=== PATIENT | female | born 1950 | race Caucasian/White ===

== ENCOUNTER 2017-09-21 00:30 | Emergency (ER) | payer MEDICARE ==
[2017-09-21 01:31] LABS: Absolute Lymphocytes (CBC) 2.8 K/uL (0.7-4.9); Absolute Monocytes 0.6 K/uL (0.1-1.3); Absolute Neutrophil 3.1 K/uL (1.8-8.0); Basophils % 0.1 % (0-1.3); Eosinophils % 1.7 % (0-4.4); Hematocrit 39.5 % (36.0-45.0); Lymphocytes % 41.9 % (15.3-44.8); MCH 29.5 pg (27.0-35.0); MPV 7.6 fL (7.6-11.3); Monocytes % 9.2 % (3.3-12.3); RBC Red Blood Cell Count 4.59 M/uL (3.86-4.86)
[2017-09-21 01:37] LABS: Protime INR 0.95
[2017-09-21 01:49] LABS: Potassium 3.5 mEq/L (3.6-5.0)
[2017-09-21 01:55] LABS: Albumin 4.2 g/dL (3.2-5.5); Bilirubin Direct 0.1 mg/dL (0-0.2); Bilirubin Total 0.6 mg/dL (0.3-1.2); Magnesium 2.1 mg/dL (1.8-2.5); Platelet Estimate ADEQ; Protein, Total 8.1 g/dL (6.0-8.3); Urine White Blood Cell Casts OK
[2017-09-21 01:56] LABS: Blood Morphology Comment NOT SEEN (NOT SEEN); CKMB Creatine Kinase MB 1.4 ng/ml (0.3-4.0)
--- NOTE | 2017-09-21 03:46 | ER ---
Nurse's Notes [facility] Unit Name: Yohana To Age: 67 yrs Sex: Female : 1950 Arrival Date: 09/21/2017 Time: 00:33 Bed 8 Private MD: Peter Muñiz E Diagnosis: Chest pain, unspecified Presentation: 09/21 00:40 Presenting complaint: Patient states: "I have chest pain for the past two days and my ao blood pressure is high. When I sit down and walk I also have SOB." Patient C/O nausea and dizziness when lays on the left. Transition of care: patient was not received from another setting of care. Onset of symptoms was September 19, 2017. Care prior to arrival: None. 00:40 Method Of Arrival: Ambulatory ao 00:40 Acuity: TONY 3 ao Triage Assessment: 00:49 General: Appears in no apparent distress. comfortable, Behavior is calm, cooperative, ao appropriate for age. Pain: Complains of pain in chest. Cardiovascular: Capillary refill < 3 seconds Patient's skin is warm and dry. Historical: - Allergies: 00:46 codeine sulfate; ao 00:46 Demerol; ao - Home Meds: 00:46 lisinopril 10 mg Oral tab 1 tab once daily [Active]; aspirin 81 mg Oral TbEC 1 tab once ao daily [Active]; Nexium 20 mg Oral cpDR 1 cap once daily [Active]; Benadryl Oral [Active]; - PMHx: 00:46 Hypertension; ao - PSHx: 00:46 ; Hysterectomy; Nose; ao - Immunization history:: Adult Immunizations not up to date. - Social history:: Smoking status: Patient/guardian denies using tobacco, Patient/guardian denies using alcohol, street drugs. - Family history:: not pertinent. - Hospitalizations: : No recent hospitalization is reported. Screenin:00 Abuse screen: Denies threats or abuse. Denies injuries from another. Nutritional aa1 screening: No deficits noted. Tuberculosis screening: No symptoms or risk factors identified. Fall Risk None identified. Assessment: 01:00 General: Appears in no apparent distress. uncomfortable, Behavior is calm, cooperative, aa1 appropriate for age. Pain: Complains of pain in chest Pain does not radiate. Pain currently is 5 out of 10 on a pain scale. Quality of pain is described as dull, Is intermittent. Neuro: Level of Consciousness is awake, alert, obeys commands, Oriented to person, place, time, situation, Moves all extremities. Full function Gait is steady, Speech is normal. Cardiovascular: Reports chest pain, shortness of breath, Heart tones S1 S2 present Capillary refill < 3 seconds Clubbing of nail beds is absent JVD is absent Patient's skin is warm and dry. Rhythm is regular Chest pain is described as vague. Respiratory: Reports shortness of breath Airway is patent Respiratory effort is even, unlabored, Respiratory pattern is regular, symmetrical, Breath sounds are clear bilaterally. the patient has mild shortness of breath. GI: No signs and/or symptoms were reported involving the gastrointestinal system. : No signs and/or symptoms were reported regarding the genitourinary system. EENT: No signs and/or symptoms were reported regarding the EENT system. Derm: Skin is intact, is healthy with good turgor, Skin is pink, warm \\T\\ dry. Musculoskeletal: Circulation, motion, and sensation intact. Capillary refill < 3 seconds. 02:19 Reassessment: Patient appears in no apparent distress at this time. Patient and/or aa1 family updated on plan of care and expected duration. Pain level reassessed. Patient is alert, oriented x 3, equal unlabored respirations, skin warm/dry/pink. Awaiting provider reassessment. 03:26 Reassessment: Patient appears in no apparent distress at this time. Patient and/or aa1 family updated on plan of care and expected duration. Pain level reassessed. Patient is alert, oriented x 3, equal unlabored respirations, skin warm/dry/pink. Awaiting repeat troponin. 03:54 Reassessment: Patient appears in no apparent distress at this time. Patient is alert, aa1 oriented x 3, equal unlabored respirations, skin warm/dry/pink. Discussed d/c \\T\\ f/u instructions with pt; denies questions or concerns at this time Patient denies pain at this time. Patient states feeling better. Vital Signs: 00:46 BP 176 / 92; Pulse 76; Resp 16; Temp 97.9(O); Pulse Ox 95% on R/A; Weight 77.11 kg (R); ao Height 5 ft. 1 in. (154.94 cm); Pain 7/10; :22 BP 158 / 84; Pulse 69; Resp 18; Pulse Ox 95% on R/A; aa1 02:19 BP 155 / 75; Pulse 63; Resp 16; Pulse Ox 96% on R/A; aa1 03:26 BP 165 / 76; Pulse 59; Resp 18; Pulse Ox 96% on R/A; Pain 0/10; aa1 03:54 BP 144 / 72; Pulse 67; Resp 16; Pulse Ox 97% on R/A; Pain 0/10; aa1 00:46 Body Mass Index 32.12 (77.11 kg, 154.94 cm) ao ED Course: 00:33 Patient arrived in ED. es 00:34 Peter Muñiz MD is Private Physician. es 00:44 Triage completed. ao 00:49 Arm band placed on right wrist. Patient placed in an exam room, on a stretcher, Patient ao notified of wait time. 00:52 Tien Sánchez MD is Attending Physician. rn 00:56 Genna Borja RN is Primary Nurse. aa1 01:00 Patient has correct armband on for positive identification. Placed in gown. Bed in low aa1 position. Call light in reach. telemetry monitor on. Pulse ox on. NIBP on. 01:05 Initial lab(s) drawn, by me, sent to lab. EKG done, by ED staff, reviewed by Tien Sánchez MD. Inserted saline lock: 20 gauge in right forearm, using aseptic technique. Blood collected. Patient maintains SpO2 saturation greater than 95% on room air. 01:12 X-ray completed. Portable x-ray completed in exam room. Patient tolerated procedure kw well. 01:14 XRAY Chest (1 view) In Process Unspecified. EDMS 03:45 Peter Muñiz MD is Referral Physician. rn 03:54 No provider procedures requiring assistance completed. IV discontinued, intact, aa1 bleeding controlled, No redness/swelling at site. Pressure dressing applied. Administered Medications: No medications were administered Outcome: 03:45 Discharge ordered by . rn 03:54 Discharged to home ambulatory, with significant other. aa1 03:54 Condition: good 03:54 Discharge instructions given to patient, Instructed on discharge instructions, follow up and referral plans. Demonstrated understanding of instructions, follow-up care. 03:56 Patient left the ED. aa1 Signatures: Dispatcher [employer] Genna Omalley, RN RN aa1 Rosa Castro Brenda, RN RN Tien Vidal MD MD rn Whitley, Kimberlee kw Ortiz, Alex, RN RN ao
--- NOTE | 2017-09-21 03:46 | EDPHYS ---
Physician Documentation [facility] Name: Yohana To Age: 67 yrs Sex: Female : 1950 Arrival Date: 09/21/2017 Time: 00:33 Bed 8 Private MD: Peter Muñiz E ED Physician Tien Sánchez HPI: 09/21 01:27 This 67 yrs old Female presents to ER via Ambulatory with complaints of Chest rn Pain, Shortness Of Breath. 01:27 The patient or guardian reports chest pain that is located primarily in the substernal rn area. Onset: yesterday. The pain radiates to both arms. The chest pain is described as aching, a heaviness. Severity of pain: At its worst the pain was moderate in the emergency department the pain has improved. The patient has not experienced similar symptoms in the past. Reports chest pain, substernal, radiates to both arms, mild sob, reports called pcp, told to come to er if worsens, got worse tonight so came in. No fever/cough. . Historical: - Allergies: 00:46 codeine sulfate; ao 00:46 Demerol; ao - Home Meds: 00:46 lisinopril 10 mg Oral tab 1 tab once daily [Active]; aspirin 81 mg Oral TbEC 1 tab once ao daily [Active]; Nexium 20 mg Oral cpDR 1 cap once daily [Active]; Benadryl Oral [Active]; - PMHx: 00:46 Hypertension; ao - PSHx: 00:46 ; Hysterectomy; Nose; ao - Immunization history:: Adult Immunizations not up to date. - Social history:: Smoking status: Patient/guardian denies using tobacco, Patient/guardian denies using alcohol, street drugs. - Family history:: not pertinent. - Hospitalizations: : No recent hospitalization is reported. ROS: 01:27 Constitutional: Negative for fever, chills, and weight loss, Eyes: Negative for injury, rn pain, redness, and discharge, Neck: Negative for injury, pain, and swelling, Cardiovascular: Negative for palpitations, and edema, Respiratory: Negative for cough, wheezing, and pleuritic chest pain, Abdomen/GI: Negative for abdominal pain, nausea, vomiting, diarrhea, and constipation, MS/Extremity: Negative for injury and deformity, Skin: Negative for injury, rash, and discoloration, Neuro: Negative for headache, weakness, numbness, tingling, and seizure. Exam: 01:27 Constitutional: This is a well developed, well nourished patient who is awake, alert, rn appears anxious Head/Face: Normocephalic, atraumatic. Eyes: Pupils equal round and reactive to light, extra-ocular motions intact. Lids and lashes normal. Conjunctiva and sclera are non-icteric and not injected. Cornea within normal limits. Periorbital areas with no swelling, redness, or edema. Neck: Trachea midline, no thyromegaly or masses palpated, and no cervical lymphadenopathy. Supple, full range of motion without nuchal rigidity, or vertebral point tenderness. No Meningismus. Cardiovascular: Regular rate and rhythm with a normal S1 and S2. No gallops, murmurs, or rubs. Normal PMI, no JVD. No pulse deficits. Respiratory: Lungs have equal breath sounds bilaterally, clear to auscultation and percussion. No rales, rhonchi or wheezes noted. No increased work of breathing, no retractions or nasal flaring. Abdomen/GI: Soft, non-tender, with normal bowel sounds. No distension or tympany. No guarding or rebound. No evidence of tenderness throughout. MS/ Extremity: Pulses equal, no cyanosis. Neurovascular intact. Full, normal range of motion. Equal circumference. Neuro: Awake and alert, GCS 15, oriented to person, place, time, and situation. Cranial nerves II-XII grossly intact. Motor strength 5/5 in all extremities. Sensory grossly intact. Cerebellar exam normal. Normal gait. Vital Signs: 00:46 BP 176 / 92; Pulse 76; Resp 16; Temp 97.9(O); Pulse Ox 95% on R/A; Weight 77.11 kg (R); ao Height 5 ft. 1 in. (154.94 cm); Pain 7/10; 01:22 BP 158 / 84; Pulse 69; Resp 18; Pulse Ox 95% on R/A; aa1 02:19 BP 155 / 75; Pulse 63; Resp 16; Pulse Ox 96% on R/A; aa1 03:26 BP 165 / 76; Pulse 59; Resp 18; Pulse Ox 96% on R/A; Pain 0/10; aa1 03:54 BP 144 / 72; Pulse 67; Resp 16; Pulse Ox 97% on R/A; Pain 0/10; aa1 00:46 Body Mass Index 32.12 (77.11 kg, 154.94 cm) ao MDM: 00:52 Patient medically screened. rn 03:38 Differential diagnosis: acute myocardial infarction, acute pericarditis, anxiety, rn coronary artery disease chest wall pain, costochondritis, gastritis, gastroesophageal reflux disease (GERD), pleurisy, pneumothorax. Data reviewed: vital signs, nurses notes, lab test result(s), EKG, radiologic studies, and as a result, I will admit patient. Counseling: I had a detailed discussion with the patient and/or guardian regarding: the historical points, exam findings, and any diagnostic results supporting the discharge/admit diagnosis, lab results, radiology results, the need for further work-up and treatment in the hospital. Response to treatment: the patient's symptoms have markedly improved after treatment. 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 . 09/21 01:02 Order name: Basic Metabolic Panel; Complete Time: 02:02 rn 09/21 01:02 Order name: BNP; Complete Time: 02:19 rn 09/21 01:02 Order name: CBC with Diff; Complete Time: 02:02 rn 09/21 01:02 Order name: Ckmb; Complete Time: 02:02 rn 09/21 01:02 Order name: CPK; Complete Time: 02:02 rn 09/21 01:02 Order name: LFT's; Complete Time: 02:02 rn 09/21 01:02 Order name: Magnesium; Complete Time: 02:02 rn 09/21 01:02 Order name: PT-INR; Complete Time: 02:02 rn 09/21 01:02 Order name: Ptt, Activated; Complete Time: 02:02 rn 09/21 01:02 Order name: Troponin (emerg Dept Use Only); Complete Time: 02:02 rn 09/21 01:02 Order name: XRAY Chest (1 view) rn 09/21 01:02 Order name: EKG; Complete Time: 01:03 rn 09/21 01:56 Order name: CBC Smear Scan; Complete Time: 02:02 EDMS 09/21 03:00 Order name: Troponin (emerg Dept Use Only); Complete Time: 03:45 rn 09/21 01:02 Order name: Cardiac monitoring; Complete Time: : rn 09/21 01:02 Order name: EKG - Nurse/Tech; Complete Time: rn 09/21 01:02 Order name: IV Saline Lock; Complete Time: rn 09/21 01:02 Order name: Labs collected and sent; Complete Time: : rn 09/21 01:02 Order name: O2 Per Protocol; Complete Time: rn 09/21 01:02 Order name: O2 Sat Monitoring; Complete Time: : rn Administered Medications: No medications were administered Disposition: 09/21/17 03:45 Discharged to Home. Impression: Chest pain, unspecified. - Condition is Stable. - Discharge Instructions: Nonspecific Chest Pain. - Medication Reconciliation Form, Thank You Letter, Antibiotic Education, Prescription Opioid Use form. - Follow up: Peter Muñiz; When: As needed; Reason: Recheck today's complaints, Re-evaluation by your physician. - Problem is new. - Symptoms have improved. Signatures: Dispatcher [employer] Genna Omalley, RN RN aa1 Tien Sánchez MD MD rn Ortiz, Alex, RN RN ao
[2017-09-21 04:02] VITALS: TEMP 97.9
[2017-09-21 04:06] VITALS: BP 144/72; O2SAT 97
--- NOTE | 2017-09-21 07:35 | EKG ---
Test Date: 2017-09-21 Test Time: 01:02:43 Line Operator: GENOVEVA MEASUREMENT RESULTS: Intervals: Rate: 77 TN: 148 QRSD: 82 QT: 426 QTc: 482 [place]: P: 22 TN: 148 QRS: 22 T: 6 INTERPRETIVE STATEMENTS: Normal sinus rhythm Nonspecific ST and T wave abnormality Prolonged QT Abnormal ECG No previous ECG available for comparison Electronically Signed On 09-21-17 07:34:43 CDT by David Mccauley
--- NOTE | 2017-09-21 08:37 | RAD REPORT ---
EXAM DESCRIPTION: RAD - Chest Single View - 09/21/2017 1:16 am CLINICAL HISTORY: Chest pain, shortness of breath. COMPARISON: None. FINDINGS: Portable technique limits examination quality. The lungs are grossly clear. The heart is upper limit of normal in size. No displaced fractures. IMPRESSION: No acute intrathoracic process suspected.
== END 2017-09-21 03:56 | disposition home or self-care (01) ==
LOC: ER 00:30
DX: R07.9 Chest pain, unspecified (principal); I10 Essential (primary) hypertension; Z79.82 Long term (current) use of aspirin; Z88.5 Allergy status to narcotic agent
CPT/HCPCS: 36415; 71045; 80048; 80076; 82550; 82553; 83735; 83880; 84484; 85025; 85610; 85730; 93005; 99285

== ENCOUNTER 2017-09-23 16:00 | Inpatient (IN) | payer MEDICARE ==
--- NOTE | 2017-09-23 16:36 | ER ---
Nurse's Notes [facility] Name: Yohana To Age: 67 yrs Sex: Female : 1950 Arrival Date: 09/23/2017 Time: 16:01 Bed 7 Private MD: Peter Muñiz E Diagnosis: Chest pain, unspecified;Non-ST elevation (NSTEMI) myocardial infarction Presentation: 09/23 16:08 Presenting complaint: Patient states: Since Tuesday I have been having chest pain on and la1 off, It gets worse whenever I exert myself and it has been waking me up in my sleep. Transition of care: patient was not received from another setting of care. Onset of symptoms was September 23, 2017. Care prior to arrival: None. 16:08 Method Of Arrival: Wheelchair la1 16:08 Acuity: TONY 3 la1 Historical: - Allergies: 16:09 codeine sulfate; la1 16:09 Demerol; la1 - Home Meds: 16:45 aspirin 81 mg Oral TbEC 1 tab once daily [Active]; Benadryl Oral [Active]; lisinopril ph 10 mg Oral tab 1 tab once daily [Active]; Nexium 20 mg Oral cpDR 1 cap once daily [Active]; - PMHx: 16:09 Hypertension; la1 - PSHx: 16:45 ; Hysterectomy; Nose; ph - Immunization history:: Adult Immunizations up to date. - Social history:: Smoking status: Patient/guardian denies using tobacco. Screenin:43 Abuse screen: Denies threats or abuse. Denies injuries from another. Nutritional ph screening: No deficits noted. Tuberculosis screening: No symptoms or risk factors identified. Fall Risk None identified. Assessment: 16:39 General: Appears in no apparent distress. uncomfortable, well groomed, Behavior is ph calm, cooperative, appropriate for age, Denies fever, feeling ill. Pain: Complains of pain in mid-sternal area Pain radiates to right arm and left arm Quality of pain is described as burning, pressure, squeezing, Pain began Tuesday. Neuro: Level of Consciousness is awake, alert, obeys commands, Oriented to person, place, time, situation. Cardiovascular: Reports chest pain, nausea, shortness of breath, Denies palpitations, syncope, vomiting, Capillary refill < 3 seconds Patient's skin is warm and dry. Chest pain quality is burning, squeezing, is located in substernal area radiates to bilateral arm(s). Respiratory: Airway is patent Respiratory effort is even, unlabored, Respiratory pattern is regular, symmetrical. Derm: Skin is intact, is healthy with good turgor, Skin is pink, warm \T\ dry. Musculoskeletal: Circulation, motion, and sensation intact. Range of motion: intact in all extremities. 17:50 Reassessment: Patient appears in no apparent distress at this time. Patient and/or ph family updated on plan of care and expected duration. Pain level reassessed. Patient is alert, oriented x 3, equal unlabored respirations, skin warm/dry/pink. Pt ambulated to restroom, gait steady, denied dizziness or SOB, now resting quietly, waiting to be taken to inpatient room. 18:08 Reassessment: Attempted to call report to 4th floor, receiving nurse unavailable, asked ph to call back in 5-10 min. 18:23 Reassessment: Attempted to call report to 4th floor at 1815, placed on hold for approx ph 6 min, will attempt again. Vital Signs: 16:09 BP 168 / 80; Pulse 77; Resp 16; Temp 97.5(TE); Pulse Ox 100% on R/A; Weight 77.11 kg; la1 Height 5 ft. 1 in. (154.94 cm); 17:36 BP 135 / 91; Pulse 76; Resp 18; Temp 97.7; Pulse Ox 98% on R/A; ph 18:35 BP 158 / 77; Pulse 68; Resp 16; Pulse Ox 98% on R/A; ph 19:41 BP 140 / 75; Pulse 70; Resp 18; Pulse Ox 96% on R/A; Pain 0/10; tl2 16:09 Body Mass Index 32.12 (77.11 kg, 154.94 cm) la1 ED Course: 16:01 Patient arrived in ED. as 16:01 Peter Muñiz MD is Private Physician. as 16:09 Triage completed. la1 16:10 [facility] Slater [facility]C [facility] kb 16:10 Tomy Jackson MD is Attending Physician. kb 16:10 Arm band placed on left wrist. la1 16:19 Longo, Eliana, RN is Primary Nurse. ph 16:30 Missed attempt(s): 22 gauge in right forearm. Bleeding controlled, band aid applied, dh3 catheter tip intact. 16:35 Darci Sims DO is Hospitalizing Provider. kb 16:35 Missed attempt(s): 22 gauge in left forearm. Bleeding controlled, band aid applied, dh3 catheter tip intact. 16:38 Initial lab(s) drawn, by me, sent to lab. Inserted saline lock: 22 gauge in right hand, dh3 using aseptic technique. Blood collected. 16:43 Patient has correct armband on for positive identification. Placed in gown. Bed in low ph position. Call light in reach. Side rails up X 1. pediatric care coordinator on. Pulse ox on. NIBP on. Warm blanket given. 16:44 Patient maintains SpO2 saturation greater than 95% on room air. ph 16:50 X-ray completed. Portable x-ray completed in exam room. Patient tolerated procedure kc2 well. 16:52 XRAY Chest (1 view) In Process Unspecified. EDMS 18:22 No provider procedures requiring assistance completed. Patient admitted, IV remains in ph place. Administered Medications: 17:34 Drug: Aspirin Chewable Tablet 324 mg Route: PO; ph 18:24 Follow up: Response: No adverse reaction ph 17:34 Drug: Lovenox 1 mg/kg {Note: 80 mg dose given.} Route: Sub-Q; Site: right lower abdomen;ph 18:24 Follow up: Response: No adverse reaction ph 17:35 Drug: PlaVIX 75 mg Route: PO; ph 18:24 Follow up: Response: No adverse reaction ph Outcome: 16:35 Decision to Hospitalize by Provider. kb 18:25 Condition: stable ph 18:25 Instructed on the need for admit. 19:52 Admitted to Tele accompanied by tech, family with patient, via stretcher, room 422, tl2 with chart, Report called to ZINA Cespedes 20:22 Patient left the ED. tl2 Signatures: Dispatcher [employer] EDMS Alisia Slater, NATALY MINAYA-Nasreen Mcneill Lee, RN RN la1 Eliana Longo RN RN Lisa Castañeda 2 Beth Swartz RN RN tl2 Saranya Bowles 3
--- NOTE | 2017-09-23 16:36 | EDPHYS ---
Physician Documentation [facility] Name: Yohana To Age: 67 yrs Sex: Female : 1950 Arrival Date: 09/23/2017 Time: 16:01 Bed 7 Private MD: Peter Muñiz E ED Physician Tomy Jackson HPI: 09/23 16:30 This 67 yrs old Female presents to ER via Wheelchair with complaints of Chest kb Pain. 16:30 The patient or guardian reports chest pain that is located primarily in the substernal kb area, anterior chest wall, left. Onset: 5 day(s) ago. The pain radiates to neck. Associated signs and symptoms: The patient has no apparent associated signs or symptoms. The chest pain is described as a pressure, tightness. Duration: The patient or guardian reports multiple episodes, with no pattern. Modifying factors: The symptoms are alleviated by nothing. the symptoms are aggravated by activity, exertion. Severity of pain: At its worst the pain was moderate in the emergency department the pain is unchanged. The patient has not experienced similar symptoms in the past. The patient has been recently seen at the [facility] Emergency Department, this week, for similar complaints labs were performed, X-rays were performed. Pt states she started having chest pain on Tuesday. Came in on Tuesday morning and was seen by Dr Sánchez. States Dr Sánchez wanted to admit her at that time, but her pain had resolved so she wanted to go home. States the pain returned on and has continuously gotten worse. Started in left chest, now is also in substernal area and radiates to neck. States the pain is worse with exertion and has been waking her from sleep. Historical: - Allergies: 16:09 codeine sulfate; la1 16:09 Demerol; la1 - Home Meds: 16:45 aspirin 81 mg Oral TbEC 1 tab once daily [Active]; Benadryl Oral [Active]; lisinopril ph 10 mg Oral tab 1 tab once daily [Active]; Nexium 20 mg Oral cpDR 1 cap once daily [Active]; - PMHx: 16:09 Hypertension; la1 - PSHx: 16:45 ; Hysterectomy; Nose; ph - Immunization history:: Adult Immunizations up to date. - Social history:: Smoking status: Patient/guardian denies using tobacco. ROS: 16:17 Constitutional: Negative for fever, chills, and weight loss, Respiratory: Negative for kb shortness of breath, cough, wheezing, and pleuritic chest pain, Abdomen/GI: Negative for abdominal pain, nausea, vomiting, diarrhea, and constipation, Back: Negative for injury and pain, : Negative for injury, bleeding, discharge, and swelling, MS/Extremity: Negative for injury and deformity, Skin: Negative for injury, rash, and discoloration, Neuro: Negative for headache, weakness, numbness, tingling, and seizure. 16:17 Cardiovascular: Positive for chest pain, Negative for edema, orthopnea, palpitations, paroxysmal nocturnal dyspnea. Exam: 16:17 Constitutional: This is a well developed, well nourished patient who is awake, alert, kb and in no acute distress. Head/Face: Normocephalic, atraumatic. Chest/axilla: Normal chest wall appearance and motion. Nontender with no deformity. No lesions are appreciated. Cardiovascular: Regular rate and rhythm with a normal S1 and S2. No gallops, murmurs, or rubs. Normal PMI, no JVD. No pulse deficits. Respiratory: Lungs have equal breath sounds bilaterally, clear to auscultation and percussion. No rales, rhonchi or wheezes noted. No increased work of breathing, no retractions or nasal flaring. Abdomen/GI: Soft, non-tender, with normal bowel sounds. No distension or tympany. No guarding or rebound. No evidence of tenderness throughout. Back: No spinal tenderness. No costovertebral tenderness. Full range of motion. Skin: Warm, dry with normal turgor. Normal color with no rashes, no lesions, and no evidence of cellulitis. MS/ Extremity: Pulses equal, no cyanosis. Neurovascular intact. Full, normal range of motion. Neuro: Awake and alert, GCS 15, oriented to person, place, time, and situation. Cranial nerves II-XII grossly intact. Motor strength 5/5 in all extremities. Sensory grossly intact. Cerebellar exam normal. Normal gait. Vital Signs: 16:09 BP 168 / 80; Pulse 77; Resp 16; Temp 97.5(TE); Pulse Ox 100% on R/A; Weight 77.11 kg; la1 Height 5 ft. 1 in. (154.94 cm); 17:36 BP 135 / 91; Pulse 76; Resp 18; Temp 97.7; Pulse Ox 98% on R/A; ph 18:35 BP 158 / 77; Pulse 68; Resp 16; Pulse Ox 98% on R/A; ph 19:41 BP 140 / 75; Pulse 70; Resp 18; Pulse Ox 96% on R/A; Pain 0/10; tl2 16:09 Body Mass Index 32.12 (77.11 kg, 154.94 cm) la1 MDM: 16:11 Patient medically screened. kb 16:17 Data reviewed: vital signs, nurses notes. Data interpreted: Pulse oximetry: on room air kb is 100 %. Interpretation: normal. 16:30 Counseling: I had a detailed discussion with the patient and/or guardian regarding: the kb historical points, exam findings, and any diagnostic results supporting the discharge/admit diagnosis, lab results, radiology results, the need for further work-up and treatment in the hospital. Physician consultation: Darci Sims DO was contacted at 16:30, regarding admission, to the telemetry unit. patient's condition, in the emergency department to see patient at 16:30. 17:17 ED course: elevated CKMB and troponin reported to Dr Sims. kb 09/23 16:11 Order name: CPK; Complete Time: 17:12 kb 09/23 16:11 Order name: Basic Metabolic Panel; Complete Time: 17:12 kb 09/23 16:11 Order name: BNP; Complete Time: 17:12 kb 09/23 16:11 Order name: CBC with Diff; Complete Time: 16:51 kb 09/23 16:11 Order name: Ckmb; Complete Time: 17:12 kb 09/23 16:11 Order name: Magnesium; Complete Time: 17:12 kb 09/23 16:11 Order name: PT-INR; Complete Time: 17:02 kb 09/23 16:11 Order name: Ptt, Activated; Complete Time: 17:02 kb 09/23 16:11 Order name: Troponin (emerg Dept Use Only); Complete Time: 17:12 kb 09/23 18:51 Order name: Urine Dipstick--Ancillary (enter results) ag 09/23 19:09 Order name: Urine Dipstick-Ancillary EDMS 09/23 20:08 Order name: Troponin I [facility] 09/23 20:11 Order name: Creatine Phosphokinase [facility] 09/23 20:15 Order name: CKMB Creatine Kinase MB [facility] 09/23 16:11 Order name: XRAY Chest (1 view); Complete Time: 17:29 kb 09/23 16:11 Order name: EKG; Complete Time: 16:12 kb 09/23 16:11 Order name: Cardiac monitoring; Complete Time: 16:46 kb 09/23 16:11 Order name: EKG - Nurse/Tech; Complete Time: 16:40 kb 09/23 16:11 Order name: IV Saline Lock; Complete Time: 16:40 kb 09/23 16:11 Order name: Labs collected and sent; Complete Time: 16:40 kb 09/23 16:11 Order name: O2 Per Protocol; Complete Time: 16:40 kb 09/23 16:11 Order name: O2 Sat Monitoring; Complete Time: 16:40 kb 09/23 16:11 Order name: Urine Dipstick-Ancillary (obtain specimen); Complete Time: 18:25 kb Administered Medications: 17:34 Drug: Aspirin Chewable Tablet 324 mg Route: PO; ph 18:24 Follow up: Response: No adverse reaction ph 17:34 Drug: Lovenox 1 mg/kg {Note: 80 mg dose given.} Route: Sub-Q; Site: right lower abdomen;ph 18:24 Follow up: Response: No adverse reaction ph 17:35 Drug: PlaVIX 75 mg Route: PO; ph 18:24 Follow up: Response: No adverse reaction ph Disposition: 09/23/17 16:35 Hospitalization ordered by Darci Sims for Inpatient Admission. Preliminary diagnosis are Chest pain, unspecified, Non-ST elevation (NSTEMI) myocardial infarction. - Bed requested for Telemetry/MedSurg (Inpatient). - Status is Inpatient Admission. tl2 - Condition is Stable. - Problem is new. - Symptoms are unchanged. UTI on Admission? No Addendum: 09/26/2017 08:37 Co-signature as Attending Physician, Tomy Jackson MD I agree with the assessment and c jean baptiste plan of care. Signatures: Dispatcher [employer] [facility] Alisia Slater, REI-C PRINCIPAL ADMINISTRATIVE CLERK-Tomy Rain MD MD cha Attema, Lee RN RN la1 Denise Almonte Patricia, RN RN Beth Swartz RN RN tl2 Corrections: (The following items were deleted from the chart) 09/23 16:34 16:17 Constitutional: This is a well developed, well nourished patient who is awake, kb alert, and in no acute distress. Head/Face: Normocephalic, atraumatic. Chest/axilla: Normal chest wall appearance and motion. Nontender with no deformity. No lesions are appreciated. Respiratory: Lungs have equal breath sounds bilaterally, clear to auscultation and percussion. No rales, rhonchi or wheezes noted. No increased work of breathing, no retractions or nasal flaring. kb
[2017-09-23 16:46] LABS: Absolute Lymphocytes (CBC) 1.6 K/uL (0.7-4.9); Absolute Monocytes 0.5 K/uL (0.1-1.3); Absolute Neutrophil 6.3 K/uL (1.8-8.0); Basophils % 0.8 % (0-1.3); Eosinophils % 0.9 % (0-4.4); Hematocrit 38.3 % (36.0-45.0); Lymphocytes % 18.6 % (15.3-44.8); MCV 85.3 fL (80-100); MPV 7.4 fL (7.6-11.3); Monocytes % 5.9 % (3.3-12.3); RBC Red Blood Cell Count 4.49 M/uL (3.86-4.86)
[2017-09-23 16:58] LABS: Protime INR 1.02
[2017-09-23 16:59] LABS: Potassium 3.7 mEq/L (3.6-5.0)
[2017-09-23] MEDS ORDERED: ONDANSETRON 4 MG/2 ML VIAL IV PRN (17:00)
[2017-09-23] MEDS ORDERED: ALPRAZOLAM 0.25 MG TABLET PO PRN (17:00)
[2017-09-23 17:02] LABS: Magnesium 1.9 mg/dL (1.8-2.5)
--- NOTE | 2017-09-23 17:11 | P.HP ---
Certification for Inpatient Patient admitted to: Observation With expected LOS: <2 Midnights Patient will require the following post-hospital care: None Practitioner: I am a practitioner with admitting privileges, knowledge of patient current condition, hospital course, and medical plan of care. Services: Services provided to patient in accordance with Admission requirements found in Title 42 Section 412.3 of the Code of Federal Regulations Patient History Date of Service: 09/23/17 Primary Care Provider: Dr. Muñiz Reason for admission: Chest pain History of Present Illness: 67-year-old female presented to ER with chest pain Patient presented with chest pain. The pain was to the substernal region. She reports that this was a deep like sensation. He would radiate up to the neck. She actually had been seen earlier this week in the ER. The patient refused to stay for evaluation. Also this week the patient reports that her blood pressure has been elevated. Patient with history of hypertension. Patient also reports a significant family history of heart disease. She denies any significant shortness of breath, nausea or vomiting. Patient came to the ER for further evaluation. Pain rated around 5 out of10. In the ER patient was evaluated. Initial blood pressure was slightly elevated at 160/80. Vital signs otherwise were unremarkable. No significant EKG changes were noted. CBC unremarkable. Cardiac enzymes pending at this time. Due to the nature of her findings in presentation the patient was admitted for observation. When I saw the patient in the ER, she appeared very anxious. Patient with history of hypertension and reflux. As mentioned above patient reports a significant past medical history in her family with heart disease. Both sister and mother have had a CABGs. Previous lab shows hyperlipidemia. Previous LDL in June was at 194. Allergies meperidine [From Demerol] Allergy (Unverified 09/21/17 04:01) Unknown codeine sulfate Allergy (Uncoded 09/21/17 04:01) Unknown Home medications list reviewed: Yes - Past Medical/Surgical History Diabetic: No -: Hypertension -: GERD -: Obesity -: Tubal ligation -: -: Hysterectomy -: Foot surgery Psychosocial/ Personal History: Patient is - Family History Mother -: Heart disease, Hypertension, Other (see notes) (CABG) Sister -: Heart disease, Hypertension, Other (see notes) (CABG) Brother -: Heart disease, Hypertension - Social History Smoking Status: Never smoker Alcohol use: No CD- Drugs: No Caffeine use: No Place of Residence: Home Review of Systems General: As per HPI Eyes: Unremarkable ENT: Unremarkable Respiratory: Unremarkable Cardiovascular: Chest Pain, As per HPI Gastrointestinal: Unremarkable Genitourinary: Unremarkable Musculoskeletal: Shoulder Pain, As per HPI Neurological: Unremarkable Lymphatics: Unremarkable Physical Examination - Physical Exam General: Alert, In no apparent distress, Oriented x3, Cooperative, Other ( Patient appears anxious) HEENT: Atraumatic, Normocephalic, PERRLA, Mucous membr. moist/pink Neck: Supple, No Thyromegaly Respiratory: Clear to auscultation bilaterally, Normal air movement Cardiovascular: Normal pulses, Regular rate/rhythm Gastrointestinal: Normal bowel sounds, Soft and benign, Non-distended, No tenderness, No masses, No rebound, No guarding Musculoskeletal: No erythema, No tenderness, No warmth Integumentary: No tenderness/swelling, No erythema, No warmth, No cyanosis Neurological: Normal speech, Normal strength at 5/5 x4 extr, Normal tone, Abnormal affect (Patient appears anxious. Somewhat tearful.) - Studies Laboratory Data (last 24 hrs) 09/23/17 16:34: PT 12.0, INR 1.02, APTT 29.5 09/23/17 16:34: WBC 8.6 D, Hgb 13.0, Hct 38.3, Plt Count 332 09/23/17 16:34: Sodium 134 L, Potassium 3.7, BUN 10, Creatinine 0.96, Glucose 141 H, Magnesium 1.9 Assessment and Plan - Problems (Diagnosis) (1) Chest pain Current Visit: Yes Status: Acute Plan: The patient will be admitted and monitor closely. Will continue with cardiac enzymes, telemetry. Will order echocardiogram to further assess. Cardiology has been consulted. Await further recommendations. Patient has hypertension with significant past medical family history of heart disease. Will continue with aspirin and Lovenox for DVT prophylaxis. Will restart lisinopril but at a higher dose. Will check lipid panel. Will start statin medication. I will be out of town tomorrow. Dr. Aiken will cover. Qualifiers: Chest pain type: unspecified Qualified Code(s): R07.9 - Chest pain, unspecified (2) Hypertension Current Visit: Yes Status: Chronic Plan: Blood pressure slightly elevated. Will increase lisinopril to 10 mg twice daily. Further adjustment may be needed. Qualifiers: Hypertension type: essential hypertension Qualified Code(s): I10 - Essential (primary) hypertension (3) GERD (gastroesophageal reflux disease) Current Visit: Yes Status: Chronic Plan: Will provide PPI. Qualifiers: Esophagitis presence: esophagitis presence not specified Qualified Code(s) : K21.9 - Gastro-esophageal reflux disease without esophagitis (4) Anxiety Current Visit: Yes Status: Chronic Plan: Patient is somewhat tearful. Will provide medication for anxiety (5) Hyperlipidemia Current Visit: Yes Status: Chronic Plan: June lab showed LDL of 194. Will start med statin medication. Will recheck lab Qualifiers: Hyperlipidemia type: unspecified Qualified Code(s): E78.5 - Hyperlipidemia , unspecified (6) Obesity Current Visit: Yes Status: Chronic Plan: Will provide dietary lifestyle modification education. Discharge Plan: Home Plan to discharge in: 24 Hours - Advance Directives Does patient have a Living Will: No Does patient have a Durable POA for Healthcare: No - Code Status/Comfort Care Code Status Assessed: Yes Time Spent Managing Pts Care (In Minutes): 55
[2017-09-23 17:12] LABS: CKMB Creatine Kinase MB 12.5 ng/ml (0.3-4.0)
--- NOTE | 2017-09-23 17:28 | RAD REPORT ---
EXAM DESCRIPTION: RAD - Chest Single View - 09/23/2017 4:52 pm CLINICAL HISTORY: Chest pain. COMPARISON: 09/21/2017 FINDINGS: Portable technique limits examination quality. The lungs are grossly clear. The heart is normal in size. No displaced fractures. IMPRESSION: No acute intrathoracic process suspected.
[2017-09-23] MEDS ORDERED: CLOPIDOGREL 75 MG TABLET ONE (17:49)
[2017-09-23] MEDS ORDERED: ENOXAPARIN 80 MG/0.8 ML SQ ONE (17:49)
[2017-09-23] MEDS ORDERED: ASPIRIN 81 MG CHEWABLE TABLET ONE (17:49)
[2017-09-23] MEDS ORDERED: ENOXAPARIN 40 MG/0.4 ML SQ SCH (18:00)
--- NOTE | 2017-09-23 18:25 | EKG ---
Test Date: 2017-09-23 Test Time: 16:26:33 Concrete Wall Grinder Operator: PILLO MEASUREMENT RESULTS: Intervals: Rate: 73 NH: 144 QRSD: 78 QT: 432 QTc: 475 [place]: P: 12 NH: 144 QRS: 2 T: 10 INTERPRETIVE STATEMENTS: Normal sinus rhythm Cannot rule out Inferior infarct, age undetermined Abnormal ECG Compared to ECG 09/21/2017 01:02:43 possible myocardial infarct finding now present ST (T wave) deviation no longer present Prolonged QT interval no longer present Electronically Signed On 09-23-17 18:24:38 CDT by Reynold Hand
[2017-09-23 19:08] LABS: Urine Blood NEGATIVE (NEG); Urine Glucose NEGATIVE (NEG); Urine Protein NEGATIVE (NEG); Urine Specific Gravity 1.015 (1.005-1.030)
[2017-09-23] MEDS: LISINOPRIL 10 MG TAB PO SCH (20:45)
[2017-09-23] MEDS: ENOXAPARIN 80 MG/0.8 ML SQ SCH (20:53)
[2017-09-23] MEDS ORDERED: ATORVASTATIN 40 MG TAB PO SCH (21:00)
[2017-09-23 21:54] VITALS: BMI 32.3
[2017-09-23 22:11] LABS: Urine Appearance CLEAR; Urine Bilirubin NEGATIVE (NEG); Urine Blood NEGATIVE (NEG); Urine Color YELLOW; Urine Glucose NEGATIVE (NEG); Urine Protein NEGATIVE (NEG); Urine Specific Gravity <=1.005 (1.005-1.030); Urine Urobilinogen 0.2 mg/dL (0.2-1.0)
[2017-09-23 22:19] LABS: Urine Microscopic Reflex ORDER UMIC
[2017-09-23 22:23] LABS: Urine Bacteria <20 /HPF (<20); Urine RBC NONE SEEN /HPF (NONE SEEN)
[2017-09-23 22:24] LABS: Urine Culture Reflex Order REFLEXED; Urine Mucus NS /HPF (NONE SEEN)
[2017-09-23] MEDS ORDERED: HYDRALAZINE HCL 20 MG/ML VIAL IV PRN (22:33)
[2017-09-24 02:55] LABS: CKMB Creatine Kinase MB 18.8 ng/ml (0.3-4.0)
[2017-09-24] MEDS: ACETAMINOPHEN 500 MG TAB PO PRN ×2 (04:20→09:10)
[2017-09-24] MEDS ORDERED: PANTOPRAZOLE 40 MG INJ IVP ONE (04:45)
[2017-09-24] MEDS ORDERED: SODIUM CHLORIDE 0.9% 10ML INJ IV PRN (04:45)
[2017-09-24 07:18] LABS: Absolute Lymphocytes (CBC) 1.7 K/uL (0.7-4.9); Absolute Monocytes 0.4 K/uL (0.1-1.3); Absolute Neutrophil 6.2 K/uL (1.8-8.0); Basophils % 0.4 % (0-1.3); Eosinophils % 0.2 % (0-4.4); Hematocrit 39.7 % (36.0-45.0); Lymphocytes % 20.1 % (15.3-44.8); MCV 86.2 fL (80-100); MPV 7.8 fL (7.6-11.3); Monocytes % 4.4 % (3.3-12.3)
[2017-09-24] MEDS ORDERED: PANTOPRAZOLE 40MG TABLET PO SCH (07:30)
[2017-09-24] MEDS: ENOXAPARIN 80 MG/0.8 ML SQ SCH ×2 (08:04→20:58)
[2017-09-24 08:05] LABS: Potassium 4.3 mEq/L (3.6-5.0)
[2017-09-24] MEDS: CLOPIDOGREL 75 MG TABLET PO SCH (08:05)
[2017-09-24] MEDS: ASPIRIN EC 81 MG TAB PO SCH (08:05)
[2017-09-24] MEDS: LISINOPRIL 10 MG TAB PO SCH ×2 (08:05→20:58)
[2017-09-24 08:19] LABS: Thyroid Stimulating Hormone 8.02 uIU/mL (0.34-5.60)
[2017-09-24] MEDS ORDERED: METOPROLOL XL 50 MG TAB PO ONE (09:30)
--- NOTE | 2017-09-24 10:26 | P.PN ---
Subjective Date of Service: 09/24/17 (Hospitalist note) Primary Care Provider: Dr. Muñiz Chief Complaint: Chest pain Subjective: Improving (Patient doing well complaining of nausea pleural presumably side effect of medication no chest pain shortness of breath) Review of Systems Unremarkable Physical Examination - Vital Signs Temperature: 97.8 F Blood Pressure: 126/72 Pulse: 76 Respirations: 18 Pulse Ox (%): 97 - Physical Exam General: Alert, Oriented x3 Respiratory: Clear to auscultation bilaterally Cardiovascular: No edema, Regular rate/rhythm Gastrointestinal: Normal bowel sounds, Soft and benign - Studies Laboratory Data (last 24 hrs) 09/23/17 16:34: PT 12.0, INR 1.02, APTT 29.5 09/23/17 16:34: WBC 8.6 D, Hgb 13.0, Hct 38.3, Plt Count 332 09/23/17 16:34: B-Natriuretic Peptide 143 H 09/23/17 16:34: Sodium 134 L, Potassium 3.7, BUN 10, Creatinine 0.96, Glucose 141 H, Magnesium 1.9 Assessment & Plan - Problems (Diagnosis) (1) Chest pain Current Visit: Yes Status: Acute Plan: Patient is 67 years of age admitted with chest pain troponins are elevated she is scheduled to have a cardiac catheterization on Tuesday complaining of nausea presume side effect of Lipitor will discuss with Cardiology otherwise she appears to be very stable vital signs stable will check daily room air pulse ox Protonix Qualifiers: Chest pain type: chest pain due to myocardial ischemia
[2017-09-24 11:09] LABS: CKMB Creatine Kinase MB 16.6 ng/ml (0.3-4.0)
--- NOTE | 2017-09-24 14:31 | CON ---
Reason For Consultation: Ms. To is here with chest pain and non-ST elevation [place]. History Of Present Illness: Ms. To has a history of hypertension. She does not have diabetes or dyslipidemia. No history of tobacco use. She started having chest pain. She came to our emergency room, went home that was on Tuesday, came back Tuesday with more chest pain worsen. Now, she has po sitive enzymes. The highest troponin is 0.54. Her cholesterol is very elevated, it is 281, and LDL cholesterol is 186. She is allergic to meperidine, perhaps other narcotics. She has never been on a statin drug until last night when she was started on Lipitor 40, which I agree with, although I thin k I would go all the way to 80 mg based on her cholesterol levels now and the fact that she is an acu te coronary syndrome patient. She has never had a cardiac cath or a stent. She has siblings and sec ond-degree relatives, who have had bypass surgery and stents and other manifestations of coronary hea rt disease. Physical Examination: Vital Signs: She is 5 feet 1 inch, 175 pounds. General: Obese, alert, oriented, pleasant, not in distress. Lungs: Clear. Carotids no bruit. Heart: Within normal limits. Abdomen: Soft. Extremities: Trace edema, distal pulses palpable. Laboratory Data: Her electrocardiogram reveals tiny Q-waves in the inferior leads, not quite diagnos tic. When she came to the hospital 2 days before that EKG, her ST segments were very abnormal and th ey had normalized on the present EKG. Impression: The patient has an acute coronary syndrome. She needs a cardiac cath. She will be on h eparin, Plavix, aspirin, beta-blockers, SHAYNA inhibitors, and large dose statins until we can do it. VIANCA/ANILA Voice ID: [id number] Report ID: [id number]
[2017-09-24] MEDS: ATORVASTATIN 80 MG TAB PO SCH (20:58)
[2017-09-25 04:55] LABS: Absolute Lymphocytes (CBC) 3.3 K/uL (0.7-4.9); Absolute Monocytes 0.7 K/uL (0.1-1.3); Absolute Neutrophil 4.5 K/uL (1.8-8.0); Basophils % 0.2 % (0-1.3); Eosinophils % 1.3 % (0-4.4); Hematocrit 38.9 % (36.0-45.0); Lymphocytes % 38.2 % (15.3-44.8); MCH 28.8 pg (27.0-35.0); MCV 86.7 fL (80-100); MPV 7.5 fL (7.6-11.3); RBC Red Blood Cell Count 4.49 M/uL (3.86-4.86)
[2017-09-25 05:27] LABS: Magnesium 2.1 mg/dL (1.8-2.5); Potassium 3.9 mEq/L (3.6-5.0)
[2017-09-25] MEDS ORDERED: POTASSIUM CL SA 10 MEQ TAB PO ONE (06:09)
[2017-09-25] MEDS: CLOPIDOGREL 75 MG TABLET PO SCH (08:37)
[2017-09-25] MEDS: PANTOPRAZOLE 40MG TABLET PO SCH (08:37)
[2017-09-25] MEDS: ASPIRIN EC 81 MG TAB PO SCH (08:38)
[2017-09-25] MEDS: LISINOPRIL 10 MG TAB PO SCH (08:38)
[2017-09-25] MEDS: ENOXAPARIN 80 MG/0.8 ML SQ SCH ×2 (08:38→20:19)
--- NOTE | 2017-09-25 09:43 | P.PN ---
Subjective Date of Service: 09/25/17 Primary Care Provider: Dr. Muñiz Chief Complaint: Dizziness Patient was feeling fine and and she went to the bathroom had a shower was bending down patient's dose of lisinopril was increased denies any nausea schedule for a cardiac catheterization tomorrow Review of Systems Unremarkable Physical Examination - Vital Signs Temperature: 96.7 F Blood Pressure: 113/61 Pulse: 59 Respirations: 16 Pulse Ox (%): 96 - Physical Exam General: Alert, Oriented x3 Respiratory: Clear to auscultation bilaterally Cardiovascular: No edema, Regular rate/rhythm Assessment & Plan - Problems (Diagnosis) (1) Chest pain Current Visit: Yes Status: Acute Plan: Patient admitted with chest pain scheduled to have cardiac catheterization tomorrow feeling dizzy reduce dose of lisinopril to her home dose of 10 mg a day in addition patient also started on a beta-love that may have contributed to her dizziness today blood pressure is slightly low at decline on standing up patient has been instructed to call the nurses issue once to use the restroom Qualifiers: Chest pain type: chest pain due to myocardial ischemia
[2017-09-25] MEDS: ATORVASTATIN 80 MG TAB PO SCH (20:19)
[2017-09-26 05:58] LABS: Absolute Lymphocytes (CBC) 2.7 K/uL (0.7-4.9); Absolute Monocytes 0.7 K/uL (0.1-1.3); Absolute Neutrophil 4.7 K/uL (1.8-8.0); Basophils % 1.1 % (0-1.3); Eosinophils % 1.3 % (0-4.4); Hematocrit 37.9 % (36.0-45.0); Lymphocytes % 32.9 % (15.3-44.8); MCH 28.9 pg (27.0-35.0); MCV 86.3 fL (80-100); MPV 7.7 fL (7.6-11.3); Monocytes % 7.9 % (3.3-12.3)
[2017-09-26] MEDS: METOPROLOL XL 25 MG TAB PO SCH (06:06)
[2017-09-26] MEDS: PANTOPRAZOLE 40MG TABLET PO SCH (06:06)
[2017-09-26] MEDS: CLOPIDOGREL 75 MG TABLET PO SCH (06:06)
[2017-09-26] MEDS: LISINOPRIL 10 MG TAB PO SCH (06:07)
[2017-09-26] MEDS: ASPIRIN EC 81 MG TAB PO SCH (06:07)
[2017-09-26 06:11] LABS: Magnesium 2.2 mg/dL (1.8-2.5); Potassium 4.1 mEq/L (3.6-5.0)
[2017-09-26] MEDS: ENOXAPARIN 80 MG/0.8 ML SQ SCH (09:00)
--- NOTE | 2017-09-26 11:11 | P.PN ---
Subjective Date of Service: 09/26/17 Primary Care Provider: Dr. Muñiz Chief Complaint: Dizziness Subjective: Doing well Physical Examination - Vital Signs Temperature: 97.9 F Blood Pressure: 129/78 Pulse: 67 Respirations: 16 Pulse Ox (%): 94 - Physical Exam General: Alert, In no apparent distress, Oriented x3, Cooperative HEENT: Atraumatic, Mucous membr. moist/pink Neck: Supple Respiratory: Clear to auscultation bilaterally, Normal air movement Cardiovascular: Normal pulses, Regular rate/rhythm Gastrointestinal: Normal bowel sounds, Soft and benign, Non-distended Musculoskeletal: No erythema, No tenderness, No warmth Integumentary: No tenderness/swelling, No erythema, No warmth, No cyanosis Neurological: Normal speech, Normal strength at 5/5 x4 extr, Normal tone, Normal affect Lymphatics: No axilla or inguinal lymphadenopathy - Studies Medications List Reviewed: Yes Assessment & Plan - Problems (Diagnosis) (1) Chest pain Current Visit: Yes Status: Acute Plan: Await echo results. Patient have heart catheterization today. Lisinopril had to be adjusted down due to low blood pressure. Will monitor closely. Await findings from cardiology. Qualifiers: Chest pain type: chest pain due to myocardial ischemia (2) Hypertension Current Visit: Yes Status: Chronic Plan: Lisinopril was decreased. Will monitor closely. Qualifiers: Hypertension type: essential hypertension Qualified Code(s): I10 - Essential (primary) hypertension (3) GERD (gastroesophageal reflux disease) Current Visit: Yes Status: Chronic Plan: Will provide PPI. Qualifiers: Esophagitis presence: esophagitis presence not specified Qualified Code(s) : K21.9 - Gastro-esophageal reflux disease without esophagitis (4) Anxiety Current Visit: Yes Status: Chronic Plan: Patient is somewhat tearful. Will provide medication for anxiety (5) Hyperlipidemia Current Visit: Yes Status: Chronic Plan: June lab showed LDL of 194. Will continue with medication Qualifiers: Hyperlipidemia type: unspecified Qualified Code(s): E78.5 - Hyperlipidemia , unspecified (6) Obesity Current Visit: Yes Status: Chronic Plan: Will provide dietary lifestyle modification education. Qualifiers: Obesity type: due to excess calories Obesity classification: adult class 1 (BMI 30 - 34.9) Serious obesity comorbidity presence: with serious comorbidity Body mass index: BMI 32.0-32.9 Qualified Code(s): E66.09 - Other obesity due to excess calories; Z68.32 - Body mass index (BMI) 32.0-32.9, adult; Z68.32 - Body mass index (BMI) 32.0-32.9, adult Discharge Plan: Home Plan to discharge in: 24 Hours Time Spent Managing Pts Care (In Minutes): 55
[2017-09-26] MEDS ORDERED: NA CHLORIDE 0.9% 50 ML ONE (12:12)
[2017-09-26] MEDS ORDERED: ATROPINE SULF 1 MG/10 ML SYR IV ONE (12:12)
[2017-09-26] MEDS ORDERED: LIDOCAINE 1% 20 ML MDV ONE (12:12)
[2017-09-26] MEDS ORDERED: HEPA 1000U/500MLS 2,000 UNIT/1,000 ML BAG IV ONE (12:12)
[2017-09-26] MEDS ORDERED: FENTANYL CITR 100 MCG/2 ML ONE (12:12)
[2017-09-26] MEDS ORDERED: MIDAZOLAM HCL 2 MG/2 ML INJ ONE ×2 (12:12→13:22)
[2017-09-26] MEDS ORDERED: NA CHLORIDE 0.9% 500 ML ONE ×2 (12:44→14:27)
[2017-09-26] MEDS ORDERED: NITROGLYCERIN/D5W 25 MG/250 ML BTL IV ONE (13:39)
[2017-09-26] MEDS ORDERED: NITROGLYCERIN 100 MCG/ML SYR (for cath lab use only) IV ONE (13:39)
[2017-09-26] MEDS: ATORVASTATIN 80 MG TAB PO SCH (20:41)
--- NOTE | 2017-09-27 00:40 | OP ---
Surgeon: Reynold Hand MD Procedures: Left heart catheterization, coronary arteriography, percutaneous coronary intervention, and a stent was placed in an obtuse marginal artery. Findings: The patient had mild diffuse disease. There was a moderate long stenosis in the mid LAD o f 40% and the obtuse marginal had a 90+ percent lesion. At a bifurcation point, it was felt to be th e culprit lesion. No LV gram was done and a stent was placed across the culprit artery, a 2.5 x 12 S ynergy stent. The angiographic result was excellent. No complications. The side branch had RANDEE gr francisca 2 to 3 flow. Procedure In Detail: The patient gave informed consent, brought to the cardiac cardiac cath lab manager in a fasting state, sedated with Versed, fentanyl. Lidocaine 1% was used to anesthetize the tissues over the rig ht femoral artery. The artery was entered using an 18-gauge needle with modified Seldinger technique . A 4-Bulgarian sheath, we used a JL4 for the left, 3DRC for the right. After decision was made to do a stent, we gave Angiomax, documented in ACT, out of range. We used a 6-Bulgarian XB 3.5 with side hole s guide. The wire was a Ke 0.014 coronary wire and we primary stented using a 2.5 x 12 Synergy, inflated to 12 atmospheres. Complications from the procedure, none. Angiographic result excellent. At the end of the procedure, all catheters were removed and angiogram was done of the right femoral artery. Decision was made to close the arteriotomy using an Angio-Seal after the ACT comes down to l ess than 300 seconds. Complications: Complications from the procedure none. Estimated Blood Loss: 10 cc. English Language Learner Teacher: Nessa Patel. VIANCA/ANILA Voice ID: [id number] Report ID: [id number]
[2017-09-27 02:30] VITALS: O2SAT 97
[2017-09-27 04:56] LABS: Absolute Lymphocytes (CBC) 2.4 K/uL (0.7-4.9); Absolute Monocytes 0.8 K/uL (0.1-1.3); Absolute Neutrophil 5.5 K/uL (1.8-8.0); Basophils % 1.3 % (0-1.3); Eosinophils % 1.2 % (0-4.4); Hematocrit 36.8 % (36.0-45.0); Lymphocytes % 26.9 % (15.3-44.8); MCH 28.9 pg (27.0-35.0); MCV 86.7 fL (80-100); MPV 7.6 fL (7.6-11.3); Monocytes % 8.4 % (3.3-12.3); RBC Red Blood Cell Count 4.25 M/uL (3.86-4.86)
[2017-09-27 05:13] LABS: Potassium 3.9 mEq/L (3.6-5.0)
[2017-09-27] MEDS: METOPROLOL XL 25 MG TAB PO SCH (05:27)
[2017-09-27] MEDS ORDERED: LEVOTHYROXINE SOD 0.025 MG TAB PO SCH (06:00)
[2017-09-27] MEDS ORDERED: LEVOTHYROXINE SOD 0.05 MG TABLET PO SCH (07:00)
--- NOTE | 2017-09-27 08:25 | P.DS ---
Admission Date: 09/23/17 Discharge Date: 09/27/17 Primary Care Provider: Dr. Muñiz Disposition: ROUTINE DISCHARGE Discharge Condition: GOOD Reason for Admission: Dizziness Consultations: Cardiology-Dr. Hand Procedures: Heart catheterization: Surgeon: Reynold Hand MD Procedures: Left heart catheterization, coronary arteriography, percutaneous coronary intervention, and a stent was placed in an obtuse marginal artery. Findings: The patient had mild diffuse disease. There was a moderate long stenosis in the mid LAD of 40% and the obtuse marginal had a 90+ percent lesion. At a bifurcation point, it was felt to be the culprit lesion. No LV gram was done and a stent was placed across the culprit artery, a 2.5 x 12 Synergy stent. The angiographic result was excellent. No complications. The side branch had RANDEE grade 2 to 3 flow. - Problems (1) Chest pain Onset Date: 09/27/17 Current Visit: Yes Status: Acute Qualifiers: Chest pain type: chest pain due to myocardial ischemia (2) Hypertension Onset Date: 09/27/17 Current Visit: Yes Status: Chronic Qualifiers: Hypertension type: essential hypertension Qualified Code(s): I10 - Essential (primary) hypertension (3) GERD (gastroesophageal reflux disease) Onset Date: 09/27/17 Current Visit: Yes Status: Chronic Qualifiers: Esophagitis presence: esophagitis presence not specified Qualified Code(s) : K21.9 - Gastro-esophageal reflux disease without esophagitis (4) Anxiety Onset Date: 09/27/17 Current Visit: Yes Status: Chronic (5) Hyperlipidemia Onset Date: 09/27/17 Current Visit: Yes Status: Chronic Qualifiers: Hyperlipidemia type: unspecified Qualified Code(s): E78.5 - Hyperlipidemia , unspecified (6) Obesity Onset Date: 09/27/17 Current Visit: Yes Status: Chronic Qualifiers: Obesity type: due to excess calories Obesity classification: adult class 1 (BMI 30 - 34.9) Serious obesity comorbidity presence: with serious comorbidity Body mass index: BMI 32.0-32.9 Qualified Code(s): E66.09 - Other obesity due to excess calories; Z68.32 - Body mass index (BMI) 32.0-32.9, adult; Z68.32 - Body mass index (BMI) 32.0-32.9, adult (7) Chronic renal disease Current Visit: Yes Status: Chronic Qualifiers: Chronic kidney disease stage: stage 2 (mild) Qualified Code(s): N18.2 - Chronic kidney disease, stage 2 (mild) (8) CAD (coronary artery disease) Current Visit: Yes Status: Chronic Qualifiers: Associated angina: with unstable angina (9) Hypothyroidism Current Visit: Yes Status: Chronic Qualifiers: Hypothyroidism type: unspecified Qualified Code(s): E03.9 - Hypothyroidism , unspecified (10) Acute coronary syndrome Current Visit: Yes Status: Acute Brief History of Present Illness: 67-year-old female presented to ER with chest pain Patient presented with chest pain. The pain was to the substernal region. She reports that this was a deep like sensation. He would radiate up to the neck. She actually had been seen earlier this week in the ER. The patient refused to stay for evaluation. Also this week the patient reports that her blood pressure has been elevated. Patient with history of hypertension. Patient also reports a significant family history of heart disease. She denies any significant shortness of breath, nausea or vomiting. Patient came to the ER for further evaluation. Pain rated around 5 out of10. In the ER patient was evaluated. Initial blood pressure was slightly elevated at 160/80. Vital signs otherwise were unremarkable. No significant EKG changes were noted. CBC unremarkable. Cardiac enzymes pending at this time. Due to the nature of her findings in presentation the patient was admitted for observation. When I saw the patient in the ER, she appeared very anxious. Patient with history of hypertension and reflux. As mentioned above patient reports a significant past medical history in her family with heart disease. Both sister and mother have had a CABGs. Previous lab shows hyperlipidemia. Previous LDL in June was at 194. Hospital Course: Patient presented with chest pain. She was found to have acute coronary syndrome. Patient evaluated by Cardiology. Heart catheterization was recommended and done. Heart catheterization showed stenosis to the Obtuse Marginal. Mid LAD was at 40% stenosis. Mild diffuse disease noted. A stent was placed to the OM. Patient tolerated procedure well. At discharge patient will continue with aspirin 81 mg daily and Plavix 75 mg daily. Recommendation is for the patient to follow up with cardiology as an outpatient to further monitor. Patient has hypertension. This remained stable during her stay. At discharge patient will continue with lisinopril 10 mg daily and metoprolol 12.5 mg daily. Recommendation is to maintain blood pressures less 150/80. Further adjustment can be done by her PCP. Patient has hyperlipidemia. Levels were elevated. Patient has been started on Lipitor. At discharge she will continue with Lipitor 80 mg 1 pill daily. Patient has GERD. Patient will continue with Nexium daily. Patient has hypothyroidism. Patient had use medication the past but this was discontinued. Repeat levels show thyroid disease. At discharge, New medication Levoxyl 50 mcg daily has been added. Recommendation to recheck lab-tsh and free T4 in 4 weeks to monitor progress. Further adjustment can be done by her PCP. Patient has underlying chronic renal disease for the patient to follow up with nephrology as an outpatient to establish care and monitor. Recommendation is to recheck lab-BMP in 1 week to monitor progress. Recommendation on no further use of nonsteroidal anti-inflammatories. Future medications will need to be renally dosed. Vital Signs/Physical Exam: Temp Pulse Resp BP Pulse Ox 97.9 F 71 17 114/69 93 09/27/17 04:00 09/27/17 05:27 09/27/17 04:00 09/27/17 05:27 09/27/17 04:00 General: Alert, In no apparent distress, Oriented x3, Cooperative HEENT: Atraumatic, Mucous membr. moist/pink Neck: Supple Respiratory: Clear to auscultation bilaterally, Normal air movement Cardiovascular: Normal pulses, Regular rate/rhythm Gastrointestinal: Normal bowel sounds, Soft and benign, Non-distended, No tenderness, No masses, No rebound, No guarding Musculoskeletal: No erythema, No tenderness, No warmth Integumentary: No tenderness/swelling, No erythema, No warmth, No cyanosis Neurological: Normal speech, Normal strength at 5/5 x4 extr, Normal tone, Normal affect Laboratory Data at Discharge: WBC 8.9 K/uL (4.3-10.9) 09/27/17 04:25 Hgb 12.3 g/dL (12.0-15.0) 09/27/17 04:25 Hct 36.8 % (36.0-45.0) 09/27/17 04:25 Plt Count 314 K/uL (152-406) 09/27/17 04:25 PT 12.0 SECONDS (9.5-12.5) 09/23/17 16:34 INR 1.02 09/23/17 16:34 APTT 29.5 SECONDS (24.3-36.9) 09/23/17 16:34 Sodium 134 mEq/L (135-145) L 09/27/17 04:25 Potassium 3.9 mEq/L (3.6-5.0) 09/27/17 04:25 BUN 19 mg/dL (6-20) 09/27/17 04:25 Creatinine 1.17 mg/dL (0.44-1.00) H 09/27/17 04:25 Glucose 106 mg/dL (65-120) 09/27/17 04:25 Magnesium 2.2 mg/dL (1.8-2.5) 09/26/17 05:19 Troponin I 0.53 ng/mL (<0.03) H* 09/24/17 09:20 B-Natriuretic Peptide 143 pg/ml (<=100) H 09/23/17 16:34 Triglycerides 273 mg/dL (35-160) H 09/24/17 05:25 Cholesterol 281 mg/dL (<200) H 09/24/17 05:25 HDL Cholesterol 40 mg/dL (29-89) 09/24/17 05:25 Cholesterol/HDL Ratio 7.03 09/24/17 05:25 Home Medications: Aspirin [Aspir-Low] 81 mg PO DAILY 09/23/17 Esomeprazole Mag Trihydrate [Nexium] 20 mg PO DAILY 09/23/17 Lisinopril 10 mg PO DAILY 09/23/17 Atorvastatin Calcium [Lipitor] 80 mg PO BEDTIME #30 tab 09/27/17 Clopidogrel Bisulfate [Plavix*] 75 mg PO DAILY #30 tablet 09/27/17 Levothyroxine [Synthroid*] 0.05 mg PO [id number] tablet 09/27/17 Lisinopril [Prinivil*] 10 mg PO DAILY tab 09/27/17 Metoprolol Succinate [Toprol Xl*] 12.5 mg PO [id number] #60 tab 09/27/17 New Medications: Atorvastatin Calcium [Lipitor] 80 mg PO BEDTIME #30 tab Clopidogrel Bisulfate [Plavix*] 75 mg PO DAILY #30 tablet Metoprolol Succinate [Toprol Xl*] 12.5 mg PO [id number] #60 tab Patient Discharge Instructions: 1. Patient will need a follow up with her PCP in 1 week to follow up this hospitalization. 2. Patient presented with chest pain. Patient evaluated by Cardiology. Heart catheterization done. Heart catheterization showed stenosis to 1 of her arteries. Stent placed. At discharge patient will continue with aspirin 81 mg 1 pill daily and Plavix 75 mg 1 pill daily. Recommendation is for the patient to follow up with cardiology as an outpatient to further monitor. 3. Patient has hypertension. At discharge patient will continue with lisinopril 10 mg daily and metoprolol 12.5 mg daily. Recommendation is to maintain blood pressures less 150/80. Further adjustment can be done by her PCP. 4. Patient has hyperlipidemia. Patient has been started on Lipitor. At discharge she will continue with Lipitor 80 mg 1 pill daily. 5. Patient has GERD. Patient will continue with Nexium daily. 6. Patient has hypothyroidism. New medication Levoxyl 50 mcg daily has been added. Recommendation to recheck lab-tsh and free T4 in 4 weeks to monitor progress. Further adjustment can be done by her PCP. 7. Patient has underlying chronic renal disease for the patient to follow up with nephrology as an outpatient to establish care and monitor. Recommendation is to recheck lab-BMP in 1 week to monitor progress. Recommendation on no further use of nonsteroidal anti-inflammatories. Future medications will need to be renally dosed. Diet: AHA Activity: Ad dimas Time spent managing pt's care (in minutes): 55
[2017-09-27] MEDS: CLOPIDOGREL 75 MG TABLET PO SCH (08:42)
[2017-09-27] MEDS: LISINOPRIL 10 MG TAB PO SCH (08:43)
[2017-09-27] MEDS: PANTOPRAZOLE 40MG TABLET PO SCH (08:43)
[2017-09-27] MEDS: ASPIRIN EC 81 MG TAB PO SCH (08:43)
[2017-09-27 08:46] VITALS: BP 134/70
[2017-09-27 08:50] VITALS: TEMP 97.1
== END 2017-09-27 10:12 | disposition home or self-care (01) | DRG 247 ==
LOC: ER 16:00 → ERHOLD 16:37 → OBSVTOIN 16:37 → 4TH 19:44
PROVIDERS: ADMIT Family Medicine; ATTEND Family Medicine
PROC: 4A023N7 Measurement of Cardiac Sampling and Pressure, Left Heart, Percutaneous Approach (ICD-10-PCS; principal; 2017-09-26)
PROC: 027034Z Dilation of Coronary Artery, One Artery with Drug-eluting Intraluminal Device, Percutaneous Approach (ICD-10-PCS; 2017-09-26)
DX: I21.4 Non-ST elevation (NSTEMI) myocardial infarction (principal); I12.9 Hypertensive chronic kidney disease with stage 1 through stage 4 chronic kidney disease, or unspecified chronic kidney disease; N18.2 Chronic kidney disease, stage 2 (mild); K21.9 Gastro-esophageal reflux disease without esophagitis; F41.9 Anxiety disorder, unspecified; E78.5 Hyperlipidemia, unspecified; E66.9 Obesity, unspecified; E03.9 Hypothyroidism, unspecified; Z68.32 Body mass index [BMI] 32.0-32.9, adult
CPT/HCPCS: 36415; 71045; 80048; 80061; 80076; 81003; 81015; 82550; 82553; 82962; 83735; 83880; 84439; 84443; 84484; 85025; 85347; 85610; 85730; 87086; 87088; 93005; 93454; 96372; 99285; C1725; C1760; C1877; C1893; C9113; C9600; J0360; J0583; J1650; J2250; J2405; J3010

== ENCOUNTER 2018-03-06 18:09 | Emergency (ER) | payer MEDICARE ==
[2018-03-06] MEDS ORDERED: PANTOPRAZOLE 40 MG INJ ONE (18:40)
[2018-03-06] MEDS ORDERED: ONDANSETRON 4 MG/2 ML VIAL ONE (18:40)
[2018-03-06] MEDS ORDERED: FENTANYL CITR 100 MCG/2 ML ONE (18:40)
[2018-03-06] MEDS ORDERED: NA CHLORIDE 0.9% 1,000 ML ONE (18:40)
[2018-03-06 18:58] LABS: Absolute Lymphocytes (CBC) 1.6 K/uL (0.7-4.9); Absolute Monocytes 0.5 K/uL (0.1-1.3); Absolute Neutrophil 3.6 K/uL (1.8-8.0); Basophils % 0.8 % (0-1.3); Eosinophils % 1.4 % (0-4.4); Hematocrit 32.7 % (36.0-45.0); Lymphocytes % 27.6 % (15.3-44.8); MCH 29.4 pg (27.0-35.0); MCV 85.8 fL (80-100); MPV 7.5 fL (7.6-11.3); Monocytes % 7.8 % (3.3-12.3); RBC Red Blood Cell Count 3.82 M/uL (3.86-4.86)
[2018-03-06 19:20] LABS: ALT/SGPT 27 U/L (12-78); AST/SGOT 23 U/L (15-37); Albumin 3.2 g/dL (3.4-5.0); Alkaline Phosphatase 87 U/L (45-117); BUN Blood Urea Nitrogen 10 mg/dL (7-18); Bicarbonate 26 mmol/L (21-32); Bilirubin Direct < 0.1 mg/dL (0-0.2); Bilirubin Total 0.3 mg/dL (0.2-1.0); CKMB Creatine Kinase MB < 1.0 ng/mL (0.3-3.6); Creatine Phosphokinase 92 U/L (26-192); Glucose Level 116 mg/dL (74-106); Lipase 142 U/L (73-393); Magnesium 2.2 mg/dL (1.8-2.4); NT PRO-BNP 215 pg/mL (<125); Potassium 3.9 mmol/L (3.5-5.1); Protein, Total 6.5 g/dL (6.4-8.2); Sodium Level 141 mmol/L (136-145); Troponin (Emerg Dept Use Only) < 0.02 ng/mL (0.0-0.045)
[2018-03-06 19:24] LABS: Protime INR 0.98
--- NOTE | 2018-03-06 19:49 | RAD REPORT ---
EXAM DESCRIPTION: RAD - Shoulder Right 2 View - 03/06/2018 7:29 pm CLINICAL HISTORY: PAIN COMPARISON: No comparisons FINDINGS: Mildly impacted proximal right humerus fracture is seen. Findings of calcific tendinitis a lso noted. No dislocation.
--- NOTE | 2018-03-06 19:50 | RAD REPORT ---
EXAM DESCRIPTION: RAD - Chest Single View - 03/06/2018 7:31 pm CLINICAL HISTORY: COUGH Chest pain. COMPARISON: Chest Single View dated 09/23/2017; Chest Single View dated 09/21/2017 FINDINGS: Portable technique limits examination quality. The lungs are grossly clear. The heart is normal in size. Fracture the proximal right humerus noted.
--- NOTE | 2018-03-06 20:00 | ER ---
Nurse's Notes [facility] Name: Yohana To Age: 67 yrs Sex: Female : 1950 Arrival Date: 03/06/2018 Time: 18:13 Bed 4 Private MD: Diagnosis: Fall on same level from slipping, tripping and stumbling;Contusion of left knee;Orbital rim fracture with small hemorrhage/ impacted proximal humerus fracture Presentation: 03/06 18:10 Transition of care: patient was not received from another setting of care. Onset of ss symptoms was March 06, 2018. Risk Assessment: Do you want to hurt yourself or someone else? Patient reports no desire to harm self or others. Initial Sepsis Screen: Does the patient meet any 2 criteria? No. Patient's initial sepsis screen is negative. Does the patient have a suspected source of infection? No. Patient's initial sepsis screen is negative. 18:10 Presenting complaint: EMS states: Approx 45 minutes ago, patient fell and tripped over her dog landing on her R side. Pt c/o R sided facial pain, R shoulder pain. Denies LOC. Care prior to arrival: Medication(s) given: Fentanyl 50 mg IVP by EMT IV initiated. 20 GA, in the left wrist. Mechanism of Injury: Fall from standing position. from standing position. Trauma event details: Injury occurred in the [facility], Injury occurred: at home. Injury occurred: March 06, 2018 Injury occurred at: 15:15. 18:10 Acuity: TONY 2 ss 18:10 Method Of Arrival: EMS ss Trauma Activation: Alert Physician: ED Physician; Name: Dr Jackson; Notified At: 18:15; Arrived At: Physician: General Surgeon; Name: ; Notified At: 18:15; Arrived At: Physician: Radiology; Name: Aris; Notified At: 18:15; Arrived At: Physician: Respiratory; Name: ; Notified At: 18:15; Arrived At: Physician: Lab; Name: ; Notified At: 18:15; Arrived At: 18:15 Primary RN: Lori IZAGUIRRE, technical education teacher" Saranya gan Historical: - Allergies: 18:23 codeine sulfate; ss 18:23 Demerol; ss - Home Meds: 20:38 aspirin 81 mg Oral TbEC 1 tab once daily [Active]; Nexium 20 mg Oral cpDR 1 cap once ak1 daily [Active]; lisinopril 10 mg Oral tab 1 tab once daily [Active]; - PMHx: 18:23 Hypertension; ss - PSHx: 18:23 ; Hysterectomy; Nose; ss - Immunization history:: Adult Immunizations unknown. - Immunization history: Last tetanus immunization: unknown. - Social history:: Smoking status: unknown. - Ebola Screening: : No symptoms or risks identified at this time. Screenin:10 Abuse screen: Denies threats or abuse. Denies injuries from another. Tuberculosis ss screening: Never had TB. 20:38 Nutritional screening: No deficits noted. Fall Risk None identified. ak1 Primary Survey: 06:10 A: Airway: patent. Breathing/Chest: Respiratory pattern: regular, Respiratory effort: ss spontaneous, unlabored, Breath sounds: clear, bilaterally. Chest inspection: symmetrical rise and fall of the chest. Circulation: Heart tones present. Pulses: palpable right radial artery, right dorsalis pedis artery, left radial artery and left dorsalis pedis artery. Skin color: pink, Skin temperature: warm. Disability Alert. 20:39 Reassessment Airway Airway Breathing/Chest Respiratory pattern Regular Respiratory ak1 effort Spontaneous Unlabored. Secondary Survey: 06:10 HEENT: Face Other small pinpoint abrasion to R eyebrow. No bleeding noted at this time. ss Pt reports it is from her glasses. Eyes: No injury or deformity noted. Ears: clear Nose: clear. Musculoskeletal: Circulation, motion, and sensation intact. Range of motion: limited in right shoulder Swelling absent. Assessment: 18:10 General: Appears uncomfortable, Behavior is cooperative, quiet. Pain: Complains of pain ss in right shoulder, R side of face, L knee Pain currently is 5 out of 10 on a pain scale. Quality of pain is described as aching, Is continuous. Neuro: Level of Consciousness is awake, alert, obeys commands, Oriented to person, place, time, situation. EENT: Nares are clear Oral mucosa is moist. Throat is clear. Cardiovascular: Capillary refill < 3 seconds is brisk in bilateral fingers. Respiratory: Respiratory effort is even, unlabored, Respiratory pattern is regular, symmetrical. Respiratory: Breath sounds are clear bilaterally. Denies cough, shortness of breath pain with respiration, pain with cough, pain with movement. GI: Reports nausea, Patient currently denies abdominal pain, diarrhea, vomiting. : No signs and/or symptoms were reported regarding the genitourinary system. Derm: Skin is intact, is healthy with good turgor, Skin is clammy, Skin is pale, Skin temperature is cool. Musculoskeletal: Swelling present in left knee. Musculoskeletal: Range of motion: limited in right shoulder. 19:04 Reassessment: Patient appears in no apparent distress at this time. Patient and/or aa1 family updated on plan of care and expected duration. Pain level reassessed. Patient states symptoms have improved. Reassessment: at bedside. Pt reports pain has improved. Awaiting CT scan. Neuro: Level of Consciousness is awake, alert, obeys commands, Oriented to person, place, time, situation. Respiratory: Airway is patent Respiratory effort is even, unlabored, Respiratory pattern is regular, symmetrical. Derm: Skin is intact, is healthy with good turgor, Skin is dry, Skin is pale, Skin temperature is cool. 20:40 Reassessment: pt and family informed of condition and admission status. pt resting with ak1 eyes closed, resp even and unlabored. will continue to monitor. . 22:22 Reassessment: Patient appears in no apparent distress at this time. pt resting with ak1 eyes closed, resp even and unlabored. family at bedside. will continue to monitor. 22:39 Reassessment: pt and family informed of CT results and need for transfer. . ak1 23:02 Reassessment: report given to [facility].. ak1 Vital Signs: 18:10 BP 150 / 71; Pulse 56; Resp 16; Temp 98.0(O); Pulse Ox 97% on R/A; Weight 76.66 kg; ss Height 5 ft. 1 in. (154.94 cm); Pain 5/10; 19:04 BP 116 / 51; Pulse 52; Resp 14; Pulse Ox 96% on R/A; aa1 20:00 BP 131 / 66; Pulse 74; Resp 16; Pulse Ox 100% on R/A; aa1 20:50 BP 137 / 58; Pulse 68; Resp 20; Pulse Ox 100% on R/A; aa1 22:20 BP 122 / 54; Pulse 62; Resp 14; Temp 98.4(O); Pulse Ox 97% on R/A; Pain 2/10; ak1 18:10 Body Mass Index 31.93 (76.66 kg, 154.94 cm) [place] Coma Score: 18:10 Eye Response: spontaneous(4). Verbal Response: oriented(5). Motor Response: obeys ss commands(6). Total: 15. Trauma Score (Adult): 18:10 Eye Response: spontaneous(1); Verbal Response: oriented(1); Motor Response: obeys ss commands(2); Systolic BP: > 89 mm Hg(4); Respiratory Rate: 10 to 29 per min(4); [place] Score: 15; Trauma Score: 12 19:04 Eye Response: spontaneous(1); Verbal Response: oriented(1); Motor Response: obeys aa1 commands(2); Systolic BP: > 89 mm Hg(4); Respiratory Rate: 10 to 29 per min(4); Judy Score: 15; Trauma Score: 12 20:00 Eye Response: spontaneous(1); Verbal Response: oriented(1); Motor Response: obeys aa1 commands(2); Systolic BP: > 89 mm Hg(4); Respiratory Rate: 10 to 29 per min(4); Judy Score: 15; Trauma Score: 12 20:50 Eye Response: spontaneous(1); Verbal Response: oriented(1); Motor Response: obeys aa1 commands(2); Systolic BP: > 89 mm Hg(4); Respiratory Rate: 10 to 29 per min(4); [place] Score: 15; Trauma Score: 12 ED Course: 18:10 Patient has correct armband on for positive identification. Bed in low position. Call light in reach. Pulse ox on. NIBP on. 18:10 Maintain EMS IV. Dressing intact. Good blood return noted. Site clean \\T\\ dry. Gauge \\T\\ site: 20 gauge in L wrist. Patient maintains SpO2 saturation greater than 95% on room air. Thermoregulation: warm blanket given to patient. 18:13 Patient arrived in ED. ss 18:17 Triage completed. ss 18:21 Tomy Jackson MD is Attending Physician. [facility] 18:23 Arm band placed on left wrist. ss 18:48 Smirch, Lori, RN is Primary Nurse. ss 18:48 Radiology exam delayed due to lab results not completed at this time. (BUN/Creatinine). nj 19:15 Inserted saline lock: 22 gauge in left forearm, using aseptic technique. aa1 19:29 XRAY Chest (1 view) In Process Unspecified. EDMS 19:29 Shoulder Right (2 View) XRAY In Process Unspecified. EDMS 19:[address] via stretcher. nj 19:57 Gaye Meyer MD is Hospitalizing Provider. kenia 20:11 CT Traumagram (Head C Spine CAP W Con) In Process Unspecified. EDMS 20:11 CT completed. Patient tolerated procedure well. Patient moved back from CT. 20:39 No provider procedures requiring assistance completed. Patient admitted, IV remains in ak1 place. 21:12 Karen Huff FNP-C [facility] snw Administered Medications: 18:42 Drug: NS 0.9% 500 ml Route: IV; Rate: bolus; Site: left hand; ss 19:25 Follow up: IV Status: Completed infusion aa1 20:37 Follow up: IV Status: Completed infusion ak1 18:42 Drug: Zofran 4 mg Route: IVP; Site: left hand; ss 20:37 Follow up: Response: No adverse reaction ak1 18:44 Drug: fentaNYL (PF) 25 mcg Route: IVP; Site: left hand; ss 20:37 Follow up: Response: No adverse reaction ak1 18:46 Drug: ProTONIX 40 mg Route: IVP; Site: left hand; ss 20:36 Follow up: Response: No adverse reaction ak1 19:25 Drug: NS 0.9% 1000 ml Route: IV; Rate: 125 ml/hr; Site: left forearm; aa1 20:37 Follow up: IV Status: Completed infusion ak1 21:00 Drug: Rocephin 1 grams Route: IV; Rate: calculated rate; Site: left forearm; aa1 21:05 Follow up: IV Status: Completed infusion aa1 Intake: 20:39 PO: 0ml; IV: 1000ml (IV Fluid); Total: 1000ml. ak1 Outcome: 19:59 Decision to Hospitalize by Provider. kenia 20:00 Condition: stable ak1 20:00 Patient's length of stay was not longer than 2 hours. 20:40 Instructed on the need for admit. ak1 22:25 ER care complete, transfer ordered by . snw 22:39 Transferred by ground EMS to [facility], Transfer form completed. X-rays sent ak1 w/ patient. Note: report called to Bryon music department chair at [facility]. 23:04 Patient left the ED. ak1 Signatures: Dispatcher [employer] EDRachel Foreman RN RN Genna Lopez RN RN aa1 Tomy Jackson MD MD cha Therrien, Shelly, EKG MONITOR-C EKG MONITOR-Csnw Deangelo Santiago Shelby, RN RN Sakshi rGay, RN RN ak1 Bryce De La Rosa Corrections: (The following items were deleted from the chart) 18:23 06:10 Presenting complaint: EMS states: Approx 45 minutes ago, patient fell and tripped ss over her dog landing on her R side. Pt c/o R sided facial pain, R shoulder pain. Denies LOC. 18: 06:10 Care prior to arrival: Medication(s) given: Fentanyl 50 mg IVP by EMT IV ss initiated. 20 GA, in the left wrist, : 06:10 Mechanism of Injury: Fall from standing position. from standing position [place] 18: 06:10 Trauma event details: Injury occurred in the [facility], Injury occurred: ss at home. Injury occurred: March 06, 2018 Injury occurred at: 15:15 18: 06:10 Acuity: TONY 2 [place] 18: 06:10 Method Of Arrival: EMS: [facility] [place] 03/07 07:03/06 06:10 Judy Score=15, Trauma Score=12, [place] 03/07 07:03/06 06:10 GCS: 15, [place] 03/07 07:03/06 06:10 BP 150 / 71; Pulse 56bpm; Resp 16bpm; Pulse Ox 97% RA; Temp 98.0F Oral; ss 76.66 kg; Height 5 ft. 1 in.; BMI: 31.9; Pain 5/10; 03/07 07:03/06 06:10 Abuse screen: Denies threats or abuse. Denies injuries from another. [place] 03/07 07:03/06 06:10 Tuberculosis screening: Never had TB. [place] 03/07 07:03/06 06:10 Patient has correct armband on for positive identification. Bed in low ss position. Call light in reach. 03/07 07:03/06 06:10 Pulse ox on. NIBP on. [place] 03/07 07:03/06 06:10 Patient maintains SpO2 saturation greater than 95% on room air. [place] 03/07 07:03/06 06:10 Maintain EMS IV. Dressing intact. Good blood return noted. Site clean \\T\\ ss dry. Gauge \\T\\ site: 20 gauge in L wrist. 03/07 07:03/06 06:10 Thermoregulation: warm blanket given to patient. [place]
--- NOTE | 2018-03-06 20:00 | EDPHYS ---
Physician Documentation [facility] Name: Yohana To Age: 67 yrs Sex: Female : 1950 Arrival Date: 03/06/2018 Time: 18:13 Bed 4 Private MD: ED Physician Tomy Jackson HPI: 03/06 18:26 This 67 yrs old Female presents to ER via EMS with complaints of Fall Injury. kenia 18:26 Details of fall: The patient fell from an upright position, while walking. Onset: The kenia symptoms/episode began/occurred just prior to arrival. Associated injuries: The patient sustained anterior aspect of right shoulder and posterior aspect of right shoulder, decreased range of motion, painful injury. Severity of symptoms: At their worst the symptoms were mild, moderate, in the emergency department the symptoms are unchanged. The patient has not experienced similar symptoms in the past. Historical: - Allergies: 18:23 codeine sulfate; ss 18:23 Demerol; ss - Home Meds: 20:38 aspirin 81 mg Oral TbEC 1 tab once daily [Active]; Nexium 20 mg Oral cpDR 1 cap once ak1 daily [Active]; lisinopril 10 mg Oral tab 1 tab once daily [Active]; - PMHx: 18:23 Hypertension; ss - PSHx: 18:23 ; Hysterectomy; Nose; ss - Immunization history:: Adult Immunizations unknown. - Immunization history: Last tetanus immunization: unknown. - Social history:: Smoking status: unknown. - Ebola Screening: : No symptoms or risks identified at this time. ROS: 18:27 Constitutional: Negative for fever, chills, and weight loss, Eyes: Negative for injury, kenia pain, redness, and discharge, ENT: Negative for injury, pain, and discharge, Neck: Negative for injury, pain, and swelling, Cardiovascular: Negative for chest pain, palpitations, and edema, Respiratory: Negative for shortness of breath, cough, wheezing, and pleuritic chest pain, Abdomen/GI: Negative for abdominal pain, nausea, vomiting, diarrhea, and constipation, Back: Negative for injury and pain, : Negative for injury, bleeding, discharge, and swelling, Neuro: Negative for headache, weakness, numbness, tingling, and seizure, Psych: Negative for depression, anxiety, suicide ideation, homicidal ideation, and hallucinations, Allergy/Immunology: Negative for hives, rash, and allergies, Endocrine: Negative for neck swelling, polydipsia, polyuria, polyphagia, and marked weight changes, Hematologic/Lymphatic: Negative for swollen nodes, abnormal bleeding, and unusual bruising. 18:27 MS/extremity: Positive for decreased range of motion, pain, tenderness, of the anterior aspect of right shoulder and posterior aspect of right shoulder. 18:27 Skin: Positive for pallor. Exam: 18:27 Constitutional: This is a well developed, well nourished patient who is awake, alert, kenia and in no acute distress. Head/Face: Normocephalic, atraumatic. Eyes: Pupils equal round and reactive to light, extra-ocular motions intact. Lids and lashes normal. Conjunctiva and sclera are non-icteric and not injected. Cornea within normal limits. Periorbital areas with no swelling, redness, or edema. ENT: Nares patent. No nasal discharge, no septal abnormalities noted. Tympanic membranes are normal and external auditory canals are clear. Oropharynx with no redness, swelling, or masses, exudates, or evidence of obstruction, uvula midline. Mucous membranes moist. Neck: Trachea midline, no thyromegaly or masses palpated, and no cervical lymphadenopathy. Supple, full range of motion without nuchal rigidity, or vertebral point tenderness. No Meningismus. Chest/axilla: Normal chest wall appearance and motion. Nontender with no deformity. No lesions are appreciated. Cardiovascular: Regular rate and rhythm with a normal S1 and S2. No gallops, murmurs, or rubs. Normal PMI, no JVD. No pulse deficits. Respiratory: Lungs have equal breath sounds bilaterally, clear to auscultation and percussion. No rales, rhonchi or wheezes noted. No increased work of breathing, no retractions or nasal flaring. Abdomen/GI: Soft, non-tender, with normal bowel sounds. No distension or tympany. No guarding or rebound. No evidence of tenderness throughout. Back: No spinal tenderness. No costovertebral tenderness. Full range of motion. Female : Normal external genitalia. Neuro: Awake and alert, GCS 15, oriented to person, place, time, and situation. Cranial nerves II-XII grossly intact. Motor strength 5/5 in all extremities. Sensory grossly intact. Cerebellar exam normal. Normal gait. Psych: Awake, alert, with orientation to person, place and time. Behavior, mood, and affect are within normal limits. 18:27 Skin: Appearance: Color: pale, Temperature: normal temperature, Moisture: normal moisture, petechiae, not noted, ecchymosis, not noted, flushing, not noted, diaphoresis is not appreciated. Vital Signs: 18:10 BP 150 / 71; Pulse 56; Resp 16; Temp 98.0(O); Pulse Ox 97% on R/A; Weight 76.66 kg; ss Height 5 ft. 1 in. (154.94 cm); Pain 5/10; 19:04 BP 116 / 51; Pulse 52; Resp 14; Pulse Ox 96% on R/A; aa1 20:00 BP 131 / 66; Pulse 74; Resp 16; Pulse Ox 100% on R/A; aa1 20:50 BP 137 / 58; Pulse 68; Resp 20; Pulse Ox 100% on R/A; aa1 22:20 BP 122 / 54; Pulse 62; Resp 14; Temp 98.4(O); Pulse Ox 97% on R/A; Pain 2/10; ak1 18:10 Body Mass Index 31.93 (76.66 kg, 154.94 cm) ss Lester Coma Score: 18:10 Eye Response: spontaneous(4). Verbal Response: oriented(5). Motor Response: obeys ss commands(6). Total: 15. Trauma Score (Adult): 18:10 Eye Response: spontaneous(1); Verbal Response: oriented(1); Motor Response: obeys ss commands(2); Systolic BP: > 89 mm Hg(4); Respiratory Rate: 10 to 29 per min(4); Lester Score: 15; Trauma Score: 12 19:04 Eye Response: spontaneous(1); Verbal Response: oriented(1); Motor Response: obeys aa1 commands(2); Systolic BP: > 89 mm Hg(4); Respiratory Rate: 10 to 29 per min(4); Judy Score: 15; Trauma Score: 12 20:00 Eye Response: spontaneous(1); Verbal Response: oriented(1); Motor Response: obeys aa1 commands(2); Systolic BP: > 89 mm Hg(4); Respiratory Rate: 10 to 29 per min(4); Lester Score: 15; Trauma Score: 12 20:50 Eye Response: spontaneous(1); Verbal Response: oriented(1); Motor Response: obeys aa1 commands(2); Systolic BP: > 89 mm Hg(4); Respiratory Rate: 10 to 29 per min(4); Judy Score: 15; Trauma Score: 12 MDM: 18:[address] [facility] 18:29 Data reviewed: vital signs, nurses notes, lab test result(s), EKG, radiologic studies, [facility] CT scan, plain films. 22:15 Counseling: I had a detailed discussion with the patient and/or guardian regarding: the snw historical points, exam findings, and any diagnostic results supporting the discharge/admit diagnosis, the presence of at least one elevated blood pressure reading (>120/80) during this emergency department visit, the need to transfer to another facility, [facility] does not immediately have the required specialist, Needs ENT eval. Response to treatment: the patient's symptoms have mildly improved after treatment, the patient's symptoms have markedly improved after treatment. Physician consultation: Dr. Marie Pleitez was called at 22:00, was contacted at 22:00, regarding regarding transfer, to [facility]. Dr. Pleitez kindly accepts pt in transfer for ER eval . 03/06 18:26 Order name: Basic Metabolic Panel; Complete Time: 19:45 [facility] 03/06 18:26 Order name: CBC with Diff; Complete Time: 19:45 [facility] 03/06 18:26 Order name: Ckmb; Complete Time: 19:45 [facility] 03/06 18:26 Order name: CPK; Complete Time: 19:45 [facility] 03/06 18:26 Order name: LFT's; Complete Time: 19:45 [facility] 03/06 18:26 Order name: Magnesium; Complete Time: 19:45 [facility] 03/06 18:26 Order name: NT PRO-BNP; Complete Time: 19:45 [facility] 03/06 18:26 Order name: PT-INR; Complete Time: 19:45 [facility] 03/06 18:26 Order name: Ptt, Activated; Complete Time: 19:45 [facility] 03/06 18:26 Order name: Troponin (emerg Dept Use Only); Complete Time: 19:45 [facility] 03/06 18:26 Order name: Lipase; Complete Time: 19:45 [facility] 03/06 18:26 Order name: Type And Screen [facility] 03/06 18:26 Order name: Urine Culture [facility] 03/06 21:04 Order name: ABO/RH no charge; Complete Time: 21:12 EDNE 03/06 18:26 Order name: XRAY Chest (1 view); Complete Time: 19:52 [facility] 03/06 18:26 Order name: EKG; Complete Time: 18:27 [facility] 03/06 18:26 Order name: Cardiac monitoring; Complete Time: 18:53 [facility] 03/06 18:26 Order name: CT Traumagram (Head C Spine CAP W Con); Complete Time: 20:44 [facility] 03/06 18:26 Order name: Shoulder Right (2 View) XRAY; Complete Time: 19:52 [facility] 03/06 20:05 Order name: CONS Physician Consult EDNE 03/06 20:55 Order name: Knee Left 3 View XRAY snw 03/06 21:43 Order name: RAD; Complete Time: 21:58 EDNE 03/06 21:51 Order name: Urine Dipstick--Ancillary (enter results) rg2 03/06 21:57 Order name: Urine Dipstick-Ancillary; Complete Time: 21:58 EDNE 03/06 18:26 Order name: EKG - Nurse/Tech; Complete Time: 18:53 [facility] 03/06 18:26 Order name: IV Saline Lock; Complete Time: 18:53 [facility] 03/06 18:26 Order name: Labs collected and sent; Complete Time: 18:53 [facility] 03/06 18:26 Order name: O2 Per Protocol; Complete Time: 18:53 [facility] 03/06 18:26 Order name: O2 Sat Monitoring; Complete Time: 18:53 [facility] 03/06 18:26 Order name: Urine Dipstick-Ancillary (obtain specimen); Complete Time: 22:19 [facility] 03/06 19:54 Order name: Ice pack; Complete Time: 20:25 [facility] 03/06 19:54 Order name: Sling; Complete Time: 20:36 [facility] 03/06 22:25 Order name: Ice pack; Complete Time: 22:38 snw 03/06 22:25 Order name: Gerardo wrap-joint: left knee; Complete Time: 22:38 snw Administered Medications: 18:42 Drug: NS 0.9% 500 ml Route: IV; Rate: bolus; Site: left hand; ss 19:25 Follow up: IV Status: Completed infusion aa1 20:37 Follow up: IV Status: Completed infusion ak1 18:42 Drug: Zofran 4 mg Route: IVP; Site: left hand; ss 20:37 Follow up: Response: No adverse reaction ak1 18:44 Drug: fentaNYL (PF) 25 mcg Route: IVP; Site: left hand; ss 20:37 Follow up: Response: No adverse reaction ak1 18:46 Drug: ProTONIX 40 mg Route: IVP; Site: left hand; ss 20:36 Follow up: Response: No adverse reaction ak1 19:25 Drug: NS 0.9% 1000 ml Route: IV; Rate: 125 ml/hr; Site: left forearm; aa1 20:37 Follow up: IV Status: Completed infusion ak1 21:00 Drug: Rocephin 1 grams Route: IV; Rate: calculated rate; Site: left forearm; aa1 21:05 Follow up: IV Status: Completed infusion aa1 Disposition: 03/07 07:24 Co-signature as Attending Physician, Tomy Jackson MD I agree with the assessment and kenia plan of care. Disposition: 03/06/18 22:25 Transfer ordered to [facility]. Diagnosis are Fall on same level from slipping, tripping and stumbling, Contusion of left knee, Orbital rim fracture with small hemorrhage/ impacted proximal humerus fracture. - Reason for transfer: Higher level of care. - Accepting physician is Dr. Marie Pleitez. - Condition is Stable. - Problem is new. - Symptoms are unchanged. Signatures: Dispatcher [employer] EDNE Citlali Donato RN RN Genna Borja RN RN aa1 Tomy Jackson MD MD cha Therrien, Shelly, MORTGAGE ADVISOR-C MORTGAGE ADVISOR-Celinaw Lori Domínguez RN RN ss Krenek, Amber RN RN ak1 Corrections: (The following items were deleted from the chart) 03/06 20:05 19:59 Hospitalization Ordered by Gaye Meyer MD for Observation. Preliminary mw diagnosis is Fall due to bumping against object; 3-part fracture of surgical neck of humerus; Anemia, unspecified; Syncope and collapse. Bed requested for Telemetry/MedSurg (observation). Status is Observation. Condition is Fair. Problem is new. Symptoms have improved. UTI on Admission? No. kenia 22:13 20:05 03/06/2018 19:59 Hospitalization Ordered by Gaye Meyer MD for Observation. mw Preliminary diagnosis is Fall due to bumping against object; 3-part fracture of surgical neck of humerus; Anemia, unspecified; Syncope and collapse. Bed requested for Telemetry/MedSurg (observation). Status is Observation. Condition is Fair. Problem is new. Symptoms have improved. UTI on Admission? No. mw 22:19 22:13 03/06/2018 19:59 Hospitalization Ordered by Gaye Meyer MD for Observation. rg2 Preliminary diagnosis is Fall due to bumping against object; 3-part fracture of surgical neck of humerus; Anemia, unspecified; Syncope and collapse. Bed requested for Telemetry/MedSurg (Inpatient). Status is Observation. Condition is Fair. Problem is new. Symptoms have improved. UTI on Admission? No. mw 23:04 22:25 03/06/2018 22:25 Transfer ordered to [facility]. ak1 Diagnosis is Fall on same level from slipping, tripping and stumbling; Contusion of left knee; Orbital rim fracture with small hemorrhage/ impacted proximal humerus fracture. Reason for transfer: Higher level of care. Accepting physician is Dr. Marie Pleitez. Condition is Stable. Problem is new. Symptoms are unchanged. snw
--- NOTE | 2018-03-06 20:30 | RAD REPORT ---
EXAM DESCRIPTION: CT - Head C Spine Cap W Con - 03/06/2018 8:11 pm CLINICAL HISTORY: Trauma, head and neck injury. Chest, abdomen and pelvis pain. PAIN COMPARISON: Head Brain W/Wo Con dated 07/25/2017 TECHNIQUE: CT head without contrast. CT cervical spine without contrast with coronal and sagittal reformatted images. CT chest, abdomen and pelvis with IV contrast (approximately 100 mL nonionic IV contrast) with dixon l and sagittal reformatted images of the spine. All CT scans are performed using dose optimization technique as appropriate and may include automated exposure control or mA/KV adjustment according to patient size. FINDINGS: CT HEAD WITHOUT CONTRAST: No intracranial hemorrhage, hydrocephalus or extra-axial fluid collection. No areas of brain edema o r midline shift. Hemorrhagic fluid is present in the right maxillary antrum with a mild right inferior orbital rim fra cture. The remainder the paranasal sinuses and mastoids appear clear. The calvarium is intact. CT CERVICAL SPINE WITHOUT CONTRAST: No fracture or subluxation. Mild moderate lower cervical spondylosis. The prevertebral soft tissues a re normal in thickness. CT CHEST, ABDOMEN, PELVIS WITH CONTRAST: A large thyroid goiter is noted.The lungs appear clear.No pneumothorax or pericardial/pleural fluid. No evidence of intra-abdominal visceral injury, free fluid or free air. Gallstones noted. No concerning pelvic findings. Moderate lower lumbar degenerative changes. Proximal right humerus fracture noted without dislocation. IMPRESSION: Proximal right humerus fracture without dislocation. Mild right inferior orbital rim fracture.
[2018-03-06] MEDS ORDERED: CEFTRIAXONE/SWI 1gm 1 GM/10 ML SYR ONE (21:04)
--- NOTE | 2018-03-06 21:42 | RAD REPORT ---
EXAM DESCRIPTION: RAD - Knee Left 3 View - 03/06/2018 9:34 pm CLINICAL HISTORY: Pain;Smash injury COMPARISON: No comparisons FINDINGS: Prominent soft tissue swelling is seen along the anterior soft tissues of the knee. No fra cture is clearly identified. If pain persists or progresses, MR imaging would be recommended to evalu ate for a radiographically occult injury.
[2018-03-06 21:57] LABS: Urine Blood NEGATIVE (NEG); Urine Glucose NEGATIVE (NEG); Urine Protein NEGATIVE (NEG); Urine Specific Gravity 1.015 (1.005-1.030)
[2018-03-06 23:13] VITALS: BP 122/54; TEMP 98.4; O2SAT 97
--- NOTE | 2018-03-07 15:39 | EKG ---
Test Date: 2018-03-06 Test Time: 18:30:19 Emergency Department Coordinator: VANESSA MEASUREMENT RESULTS: Intervals: Rate: 52 AR: 142 QRSD: 84 QT: 470 QTc: 437 [place]: P: 19 AR: 142 QRS: 33 T: 49 INTERPRETIVE STATEMENTS: Sinus bradycardia Otherwise normal ECG Compared to ECG 09/23/2017 16:26:33 Sinus rhythm no longer present Myocardial infarct finding no longer present Electronically Signed On 03-07-18 15:35:16 CDT by David Mccauley
== END 2018-03-06 23:04 | disposition short-term general hospital (02) ==
LOC: ER 18:09 → UNDOADMOB 20:02 → ERHOLD 20:02 → ER 23:04
DX: S42.291A Other displaced fracture of upper end of right humerus, initial encounter for closed fracture (principal); S02.80XA Fracture of other specified skull and facial bones, unspecified side, initial encounter for closed fracture; S80.02XA Contusion of left knee, initial encounter; W19.XXXA Unspecified fall, initial encounter; Y93.01 Activity, walking, marching and hiking; Y92.9 Unspecified place or not applicable; Z79.82 Long term (current) use of aspirin; Z88.5 Allergy status to narcotic agent; I10 Essential (primary) hypertension
CPT/HCPCS: 36415; 70450; 71045; 71260; 72125; 73030; 73562; 74177; 80048; 80076; 81003; 82550; 82553; 83690; 83735; 83880; 84484; 85025; 85610; 85730; 86850; 86900; 86901; 87086; 87088; 93005; C9113; J0696; J2405; J3010; J7030; Q9967

== ENCOUNTER 2021-03-10 15:24 | Emergency (ER) | payer OTHER ==
[2021-03-10 17:36] LABS: Absolute Lymphocytes (CBC) 1.1 K/uL (0.7-4.9); Basophils % 0.6 % (0-1.3); Hematocrit 30.2 % (36.0-45.0); Lymphocytes % 16.9 % (15.3-44.8); MPV 7.3 fL (7.6-11.3); RBC Red Blood Cell Count 3.79 M/uL (3.86-4.86)
[2021-03-10 17:37] LABS: Protime INR 1.01
[2021-03-10 18:03] LABS: ALT/SGPT 20 U/L (12-78); AST/SGOT 20 U/L (15-37); Albumin 3.8 g/dL (3.4-5.0); Alkaline Phosphatase 107 U/L (45-117); BUN Blood Urea Nitrogen 14 mg/dL (7-18); Bicarbonate 26 mmol/L (21-32); Bilirubin Direct 0.1 mg/dL (0-0.2); Bilirubin Total 0.4 mg/dL (0.2-1.0); Glucose Level 102 mg/dL (74-106); Magnesium 2.1 mg/dL (1.8-2.4); NT PRO-BNP 215 pg/mL (<125); Potassium 3.9 mmol/L (3.5-5.1); Protein, Total 6.8 g/dL (6.4-8.2); Sodium Level 143 mmol/L (136-145); Troponin (Emerg Dept Use Only) < 0.02 ng/mL (0.0-0.045)
--- NOTE | 2021-03-10 18:48 | RAD REPORT ---
EXAM DESCRIPTION: CT - Head Brain Wo Cont - 03/10/2021 6:25 pm CLINICAL HISTORY: headache, dizziness COMPARISON: Head angio dated 03/10/2021; Sinus Wo Cont dated 11/03/2020; Iac W/Wo Cont dated 01/15/2021 ; Head Brain W/Wo Con dated 07/25/2017 TECHNIQUE: Axial 5 mm thick images of the head were obtained without IV contrast. All CT scans are performed using dose optimization technique as appropriate and may include automated exposure control or mA/KV adjustment according to patient size. FINDINGS: No intracranial hemorrhage, mass, edema or shift of mid-line structures. No acute infarcti on changes seen. No cortical edema or sulcal effacement. Ventricles are normal. No significant atroph y changes are present. Patient has very little identifiable chronic ischemic change. Mastoid air cells and visualized portions of the paranasal sinuses are clear. No acute bony findings. IMPRESSION: Negative non-contrast CT head examination for acute significant finding. No significant since 2018 study.
--- NOTE | 2021-03-10 18:51 | RAD REPORT ---
EXAM DESCRIPTION: CT - Head angio - 03/10/2021 6:25 pm CLINICAL HISTORY: headache, dizziness TECHNIQUE: During dynamic enhancement using nonionic IV contrast, axial 1 millimeter thick images of the head were obtained. Sagittal and axial reconstruction images were generated using MIP technique and reviewed. All CT scans are performed using dose optimization technique as appropriate and may include automated exposure control or mA/KV adjustment according to patient size. COMPARISON: CT head same date FINDINGS: No aneurysm or vascular malformation identified. Major venous sinuses are patent. No stenosis, named branch occlusion, vasculitis or other significant vascular finding identifiable. Cavernous portions of each internal carotid artery show atherosclerotic wall calcification without si gnificant luminal narrowing. IMPRESSION: Negative CT angio head examination for acute or significant finding.
--- NOTE | 2021-03-10 18:59 | RAD REPORT ---
EXAM DESCRIPTION: CT - Neck Angio - 03/10/2021 6:26 pm CLINICAL HISTORY: headache, dizziness, left sided neck swelling BB marker was placed on the left side of the neck at an area of swelling. TECHNIQUE: During dynamic enhancement using nonionic IV contrast, axial 2 mm thick images of the nec k were obtained. Sagittal and axial reconstruction images were generated using MIP technique and revi ewed. All CT scans are performed using dose optimization technique as appropriate and may include automated exposure control or mA/KV adjustment according to patient size. COMPARISON: CT head same date, CT angio head same date FINDINGS: No aneurysm or vascular malformation identified. No carotid or vertebral dissection. No aortic arch or great vessel origin abnormality seen. Vertebral artery origins unremarkable as well . No stenosis, vasculitis or other significant carotid artery finding. No focal abnormality of either vertebral artery. Basilar artery is normal. Patient has markedly enlarged left thyroid lobe and isthmus. Right thyroid lobe is enlarged to a less er degree. This is a goiter pattern but there may well be nodules within the thyroid tissue indisting uishable on CT criteria. Patient has numerous lymph nodes in the left-side of the neck in proximity t o the thyroid gland. Largest is 3.5 cm in size deep to the sternocleidomastoid muscle at the level of the hyoid bone. Possibility of thyroid malignancy cannot be excluded. Cervical spine degenerative change present without pathologic bone process. IMPRESSION: CT angio neck examination shows no significant or suspicious vascular finding. Patient is again noted to have marked thyroid gland enlargement. This is a typical goiter look though 1 or more masses within the thyroid gland cannot be excluded. The patient has multiple lymph nodes along the margins of the enlarged thyroid gland, more so to the left. The largest is 3.5 cm and pathologic lymphadenopathy from thyroid or other primary malignancy i s suspected. This enlarged presumed pathologic lymph node is the correlate to the patient palpable ab normality.
--- NOTE | 2021-03-10 19:02 | RAD REPORT ---
EXAM DESCRIPTION: CT - Spine Lumbar Wo Con - 03/10/2021 6:26 pm CLINICAL HISTORY: radicular pain to the legs bilaterally COMPARISON: None. TECHNIQUE: Thin section axial imaging of the lumbar spine was performed. Sagittal and coronal recon struction images were generated and reviewed. All CT scans are performed using dose optimization technique as appropriate and may include automated exposure control or mA/KV adjustment according to patient size. FINDINGS: Lumbar bodies are normal in height and alignment. No compression fracture or acute vertebr al body finding. No paraspinal mass identifiable. L4-5 disc space is substantially narrowed with degenerative gas in the disc space and circumferential endplate spurring and disc bulge. Central canal protruding disc material and endplate spurring is roddy rderline stenotic at 10 mm. Moderate right foraminal stenosis is present at L4-5 from large endplate spurring and disc bulge. Protruding disc material at the left exit foramen is considered of herniatio n and results in moderate foraminal stenosis. Facet degenerative changes are present at this level. L5-S1 shows disc space narrowing with degenerative gas in the disc space. Disc bulge and endplate spu rring changes are present. Moderate bilateral foraminal stenosis from disc bulging, endplate spurring and facet hypertrophy. Central canal is not stenotic. Remaining lumbar levels are without significant finding. SI joint degenerative change present without pathologic or destructive process. IMPRESSION: Advanced degenerative disc disease L4-5 and L5-S1. There is significant bilateral foraminal stenosis at both of these levels including disc herniation i n the left L4-5 foramen. Central canal is borderline stenotic at L4-5 from the above detailed degenerative changes.
--- NOTE | 2021-03-10 20:16 | EDPHYS ---
Physician Documentation [facility] Name: Yohana To Age: 70 yrs Sex: Female : 1950 Arrival Date: 03/10/2021 Time: 15:26 Bed 10 Private MD: Peter Muñiz E ED Physician Tien Sánchez HPI: 03/10 17:53 This 70 yrs old Female presents to ER via Ambulatory with complaints of Neck jmm Problem - dr mayco anderson-possible aneurysm. 17:53 The patient or guardian complains of pain. Onset: The symptoms/episode began/occurred jmm gradually, 1 month(s) ago. Associated signs and symptoms:. This is a 70-year-old female with history of hypertension, coronary artery disease, that presents emerged part with complaints of left-sided neck swelling below the left ear. The symptoms have been ongoing for the past month. Patient was seen earlier in the year by Dr. Bowles due to tinnitus and inability her out the left ear. MRI was negative. Patient also complains of intermittent episodes of dizziness which are similar to episode she had prior to evaluated by Dr. Bowles. Patient denies chest pain but does complain of some radicular pain down the right leg when lying on the right side in the left leg while lying on the left side. Patient denies any bowel or bladder issues.. Historical: - Allergies: 15:37 codeine sulfate; ll1 15:37 Demerol; ll1 - PMHx: 15:37 Hypertension; heart attack; ll1 - PSHx: 15:37 heart stent; tubes tied; section; hysterectomy; ll1 - Immunization history:: Client reports receiving the 2nd dose of the Covid vaccine, Flu vaccine status is unknown. - Social history:: Smoking status: Patient denies any tobacco usage or history of. ROS: 17:53 Constitutional: Negative for fever, chills, and weight loss, Cardiovascular: Negative jmm for chest pain, palpitations, and edema, Respiratory: Negative for shortness of breath, cough, wheezing, and pleuritic chest pain. 17:53 Neck: Positive for swelling. 17:53 Neuro: Positive for dizziness. 17:53 All other systems are negative. Exam: 17:53 Constitutional: This is a well developed, well nourished patient who is awake, alert, jmm and in no acute distress. Head/Face: atraumatic. Eyes: EOMI, no conjunctival erythema appreciated ENT: Moist Mucus Membranes 17:53 Cardiovascular: Regular rate and rhythm. No edema appreciated Respiratory: Normal respirations, no respiratory distress appreciated Abdomen/GI: Non distended, soft Back: Normal ROM Skin: General appearance color normal 17:53 Neck: Lymph nodes: lymphadenopathy is appreciated, post auricular nodes, parotid nodes. 17:53 Musculoskeletal/extremity: ROM: intact in all extremities. 17:53 Skin: Appearance: Color: normal in color. 17:53 Neuro: Motor: is normal. 17:53 Psych: Behavior/mood is pleasant, cooperative. Vital Signs: 15:33 BP 126 / 85; Pulse 70; Resp 17; Temp 99.0; Pulse Ox 98% ; Weight 74.84 kg; Height 5 ft. ll1 1 in. (154.94 cm); Pain 0/10; 19:46 BP 136 / 70 RA Sitting (auto/reg); Pulse 65; Resp 18; Temp 96.6; Pulse Ox 100% ; Pain sj1 4/10; 15:33 Body Mass Index 31.18 (74.84 kg, 154.94 cm) ll1 MDM: 17:01 Patient medically screened. [facility] 20:13 Data reviewed: vital signs, nurses notes. Counseling: I had a detailed discussion with [facility] the patient and/or guardian regarding: the historical points, exam findings, and any diagnostic results supporting the discharge/admit diagnosis, lab results, radiology results, the need for outpatient follow up, to return to the emergency department if symptoms worsen or persist or if there are any questions or concerns that arise at home. ED course: I discussed all lab findings with the patient along with the need to follow-up with oncology/hematology for further evaluation of the abnormal lymph nodes. Patient advised follow-up with PCP for further evaluation of the lower back pain with radiculopathy. Patient has no symptoms of cord compression. Patient was otherwise advised to follow-up PCP in given strict return precautions. Patient understood and agrees plan of care. 03/10 17:02 Order name: Basic Metabolic Panel [facility] 03/10 17:02 Order name: CBC with Diff; Complete Time: 18:24 [facility] 03/10 17: Order name: LFT's; Complete Time: 18:24 [facility] 03/10 17:02 Order name: Magnesium; Complete Time: 18:24 [facility] 03/10 17:02 Order name: NT PRO-BNP; Complete Time: 18:24 [facility] 03/10 17:02 Order name: PT-INR; Complete Time: 18:24 [facility] 03/10 17:02 Order name: Troponin (emerg Dept Use Only); Complete Time: 18:24 [facility] 03/10 17:02 Order name: EKG; Complete Time: 17:03 [facility] 03/10 17:02 Order name: CT Head Brain wo Cont; Complete Time: 18:49 [facility] 03/10 17:02 Order name: CT Head Angio; Complete Time: 19:01 [facility] 03/10 17:02 Order name: CT Neck Angio; Complete Time: 19:01 [facility] 03/10 17:02 Order name: Basic Metabolic Panel; Complete Time: 18:24 [facility] 03/10 17:02 Order name: CT Lumbar Spine Wo Con; Complete Time: 19:03 [facility] 03/10 17:02 Order name: EKG - Nurse/Tech; Complete Time: 19:46 [facility] 03/10 17:02 Order name: IV Saline Lock; Complete Time: 17:32 [facility] 03/10 17:02 Order name: Labs collected and sent; Complete Time: 17:32 [facility] 03/10 17:02 Order name: O2 Per Protocol; Complete Time: 17:32 [facility] 03/10 17:02 Order name: O2 Sat Monitoring; Complete Time: 17:32 [facility] Administered Medications: No medications were administered Disposition Summary: 03/10/21 20:15 Discharge Ordered Location: Home [facility] Condition: Stable [facility] Diagnosis - Lymph Node Swollen m - Radicular Pain [facility] - Peripheral Vertigo [facility] Followup: [facility] - With: Jenna Bernard MD - When: 1 - 2 days - Reason: Recheck today's complaints, Continuance of care, Re-evaluation by your physician Discharge Instructions: - Discharge Summary Sheet m - Lymphadenopathy m - Radicular Pain [facility] Forms: - Medication Reconciliation Form [facility] - Thank You Letter [facility] - Antibiotic Education [facility] - Prescription Opioid Use [facility] Addendum: 03/14/2021 19:06 Co-signature as Attending Physician, Tien Sánchez MD I agree with the assessment and r n plan of care. Attestation: The patient's history, exam findings, diagnostics, and a summary of any interventions or procedures was reviewed in detail with Washington MAC. Signatures: Dispatcher [employer] Washington Pete PA PA jmm Nieto, Roman, MD MD rn Anthony, ZINA Lay RN ll1
--- NOTE | 2021-03-10 20:16 | ER ---
Nurse's Notes [facility] Name: Yohana To Age: 70 yrs Sex: Female : 1950 Arrival Date: 03/10/2021 Time: 15:26 Bed 10 Private MD: Peter Muñiz E Diagnosis: Lymph Node Swollen;Radicular Pain ;Peripheral Vertigo Presentation: 03/10 15:33 Chief complaint: Patient states: Decreased hearing since August, steroids didn't help. ll1 Saw ENT Bowles, MRI normal. Noticed two knots by L ear for 1 month with hard to swallow feeling. Mid back burning pain last started last week. For the past three nights her legs hurt if she lays on her side. Sent by Dr. Muñiz for further eval. Coronavirus screen: Vaccine status: Patient reports receiving the 2nd dose of the covid vaccine. Client denies travel out of the [place] in the last 14 days. At this time, the client does not indicate any symptoms associated with coronavirus-19. Ebola Screen: Patient denies travel to an Ebola-affected area in the 21 days before illness onset. Acute neurological deficit: none identified. Initial Sepsis Screen: Does the patient meet any 2 criteria? No. Patient's initial sepsis screen is negative. Does the patient have a suspected source of infection? No. Patient's initial sepsis screen is negative. Risk Assessment: Do you want to hurt yourself or someone else? Patient reports no desire to harm self or others. Onset of symptoms was September 01, 2020. 15:33 Method Of Arrival: Ambulatory ll1 15:33 Acuity: TONY 3 ll1 Triage Assessment: 17:10 General: Behavior is calm, cooperative, quiet. ld1 Historical: - Allergies: 15:37 codeine sulfate; ll1 15:37 Demerol; ll1 - PMHx: 15:37 Hypertension; heart attack; ll1 - PSHx: 15:37 heart stent; tubes tied; section; hysterectomy; ll1 - Immunization history:: Client reports receiving the 2nd dose of the Covid vaccine, Flu vaccine status is unknown. - Social history:: Smoking status: Patient denies any tobacco usage or history of. Screenin:04 Abuse screen: Denies threats or abuse. Denies injuries from another. Nutritional ld1 screening: No deficits noted. Tuberculosis screening: No symptoms or risk factors identified. Fall Risk None identified. No fall in past 12 months (0 pts). No secondary diagnosis (0 pts). IV access (20 points). Ambulatory Aid- None/Bed Rest/Nurse Assist (0 pts). Gait- Normal/Bed Rest/Wheelchair (0 pts) Mental Status- Oriented to own ability (0 pts). Total Escobar Fall Scale indicates No Risk (0-24 pts). Assessment: 17:04 General: Appears in no apparent distress. Pain: Complains of pain in Head Pain radiates ld1 to Neck Pain currently is 4 out of 10 on a pain scale. at worst was 7 out of 10 on a pain scale. level that patient reports is acceptable is 3 out of 10 on a pain scale. Quality of pain is described as dull, Constant Pain began 5 months. Neuro: Level of Consciousness is awake, alert, obeys commands, Oriented to person, place, time, situation, Appropriate for age Project Analyst are equal bilaterally Moves all extremities. Gait is steady, Speech is normal, Reports difficulty swallowing headache in left. Cardiovascular: No deficits noted. Respiratory: Reports shortness of breath at rest on exertion Breath sounds are clear bilaterally. Onset: The symptoms/episode began/occurred gradually, the patient has mild shortness of breath. GI: No deficits noted. : No deficits noted. EENT: Reports decreased hearing in left ear since 5 months pain in Head, left side of neck Pain is 4 out of 10 on a pain scale. since 5 months Pt stated, "It sounds like constant wind noise or water in the shower." for 5 months. Derm: No deficits noted. Musculoskeletal: No deficits noted. 18:41 Reassessment: Patient appears in no apparent distress at this time. Patient and/or hb family updated on plan of care and expected duration. Pain level reassessed. Patient is alert, oriented x 3, equal unlabored respirations, skin warm/dry/pink. Vital Signs: 15:33 BP 126 / 85; Pulse 70; Resp 17; Temp 99.0; Pulse Ox 98% ; Weight 74.84 kg; Height 5 ft. ll1 1 in. (154.94 cm); Pain 0/10; 19:46 BP 136 / 70 RA Sitting (auto/reg); Pulse 65; Resp 18; Temp 96.6; Pulse Ox 100% ; Pain sj1 410; 15:33 Body Mass Index 31.18 (74.84 kg, 154.94 cm) ll1 ED Course: 15:26 Patient arrived in ED. am2 15:27 Peter Muñiz MD is Private Physician. am2 15:37 Triage completed. ll1 15:38 Arm band placed on. ll1 16:53 Washington Dawkins PA is PHCP. [facility] 16:53 Tien Sánchez MD is Attending Physician. [facility] 16:58 Allyssa Gamino, RN is Primary Nurse. ld1 17:04 Patient has correct armband on for positive identification. ld1 17:04 No provider procedures requiring assistance completed. ld1 17:31 Basic Metabolic Panel Sent. kg 17:32 CBC with Diff Sent. kg 17:32 LFT's Sent. kg 17:32 Magnesium Sent. kg 17:32 NT PRO-BNP Sent. kg 17:32 PT-INR Sent. kg 17:32 Troponin (emerg Dept Use Only) Sent. kg 18:25 CT Head Brain wo Cont In Process Unspecified. EDMS 18:25 CT Head Angio In Process Unspecified. EDMS 18:25 CT Neck Angio In Process Unspecified. EDMS 18:25 CT Lumbar Spine Wo Con In Process Unspecified. EDMS 20:14 Jenna Bernard MD is Referral Physician. m 20:29 IV discontinued, intact, bleeding controlled, No redness/swelling at site. sj1 Administered Medications: No medications were administered Outcome: 20:15 Discharge ordered by MD. m 20:29 Discharged to home ambulatory. sj1 20:29 Condition: stable 20:29 Discharge instructions given to patient, Instructed on discharge instructions, follow up and referral plans. Demonstrated understanding of instructions, follow-up care. 20:30 Patient left the ED. sj1 Signatures: Dispatcher [employer] EDMS Washington Dawkins PA PA [facility] Joanna Plascencia, RN ZINA Yamini Beth am2 Rosanne Cruz RN RN 1 Allyssa Gamino, ZINA RN ld1 Ana Humphrey RN RN kg Ninoska Jacques RN RN sj1
[2021-03-10 21:59] VITALS: BP 136/70; TEMP 96.6; O2SAT 100
--- NOTE | 2021-03-11 12:43 | EKG ---
Test Date: 2021-03-10 Test Time: 19:28:14 [employer] Draftsperson: MEASUREMENT RESULTS: Intervals: Rate: 68 CT: 150 QRSD: 82 QT: 452 QTc: 480 [place]: P: 31 CT: 150 QRS: 45 T: 33 INTERPRETIVE STATEMENTS: Normal sinus rhythm Possible Inferior infarct, age undetermined Abnormal ECG Compared to ECG 03/06/2018 18:30:19 Myocardial infarct finding now present Sinus bradycardia no longer present Electronically Signed On 03-11-21 12:41:30 CDT by David Mccauley
== END 2021-03-10 20:30 | disposition home or self-care (01) ==
LOC: ER 15:24
DX: R59.0 Localized enlarged lymph nodes (principal); M54.10 Radiculopathy, site unspecified; H81.399 Other peripheral vertigo, unspecified ear; I10 Essential (primary) hypertension; Z88.5 Allergy status to narcotic agent
CPT/HCPCS: 93005; 85025; 80048; 36415; 83735; 85610; 80076; 84484; 83880; 72131; 70450; 70496; 70498; 99283; Q9967

== ENCOUNTER 2021-06-03 14:31 | Emergency (ER) | payer OTHER ==
--- OUTSIDE RECORDS SUMMARY | 2021-06-03 14:33 | XMS REPORT | Continuity of Care Document ---
:1950 Author Organization [facility] t Address [address] [place] [address] Care Team Providers Name Role Phone Gordon Muñiz Primary Care Physician GINGER Attending Clinician Unavailable Ginger ROSE Attending Clinician 1, Lab Attending Clinician Unavailable Jose ROSE Attending Clinician JOSE Attending Clinician Unavailable Doctor Unassigned, Name Attending Clinician Unavailable Cheo Attending Clinician GINGER Admitting Clinician Unavailable Payers Payer Name Policy Type Policy Number Effective Date Expiration Date S ource Problems Condition Condition Condition Status Onset Resolution Last Treating Co mments Source Name Details Category Date Date Treatment Clinician Date Other Other Disease Active 2020-06 Univers specified specified 1-30 ity of [place]othy[place] [address] HTN HTN Disease Active 2020-06 Univers (hypertens (hypertens 1-30 it y of ion) ion) 00:00: [address] HLD HLD Disease Active 2020-06 Univers (hyperlipi (hyperlipi 1-30 it y of demia) demia) 00:00: [address] DLBCL DLBCL Disease Active 2020-06 Univers (diffuse (diffuse 1-15 ity of large B large B 00:00: [place] cell cell 00 Medical lymphoma) lymphoma) Bran ch 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 00:00: [place] lymphoma lymphoma 00 Medica l of lymph of lymph Branch nodes of nodes of multiple multiple regions regions 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 07-01 ity of disease disease 00:00: [place] involving involving 00 Medi nicole [place] Branch coronary coronary artery of artery of [place] heart heart without without angina angina pectoris pectoris Allergies, Adverse Reactions, Alerts Allergy Allergy Status Severity Reaction(s) Onset Inactive Treating Comm ents Source Name Type Date Date Clinician Codeine Propensi Active Nausea 2020-06 Univers ty to and/or 07-01 ity of adverse Vomiting 00:00: [place] reaction 00 Medical s Branch CODEINE DRUG Active Med N/V 2020-06 Univers INGREDI 07-01 ity of 00:00: [place] 00 Medical Branch Social History Social Habit Start Date Stop Date Quantity Comments Source Exposure to Not sure [facility] SARS-CoV-2 [facility] (event) [place] Alcohol intake 2021-05-01 2021-05-01 Ex-drinker [facility] 00:00:00 00:00:00 (finding) [facility] Tobacco use and 2021-03-27 2021-03-27 Never used Universit y of exposure 00:00:00 00:00:00 [facility] Sex Ass[birth year] Universit y of 00:00:00 00:00:00 [facility] Smoking Status Start Date Stop Date Source Unknown if ever smoked Universit y of [facility] Never smoker [facility] Medications Ordered Filled Start Stop Current Ordering Indication Dosage Frequency Signature Comments Components Source Medication Medication Date Date Medication? Clinician (SIG) Name Name predniSONE 2020-06 Yes [id number] 100mg Take 5 Univers 20 mg 2-07 tablets by ity of tablet 00:00: mouth [place] 00 daily. Medical Days 2-5. Branch predniSONE 2020-06 Yes [id number] 100mg Take 5 Univers 20 mg 2-07 tablets by ity of tablet 00:00: mouth [place] 00 daily. Medical Days 2-5. Branch predniSONE 2020-06 Yes [id number] 100mg Take 5 Univers 20 mg 2-07 tablets by ity of tablet 00:00: mouth [place] 00 daily. Medical Days 2-5. Branch lidocaine-e 2020-06- PRN, Unive rs pinephrine 07-26 Starting ity of (XYLOCAINE 15:16: 10:11 on Tue s W/EPINEPHRI 00 :22 05/25/21 at [place] dical [place]) 2 0916, Branch %-1:200,000 Until Tue injection 05/26/21 at 0411, Routine FENTanyl PF 2020-06- No Slow IV Un tristan (SUBLIMAZE 07-26 Push, PRN, it y of (PF)) 15:09: 10:11 Starting [place] injection 58 :22 on [facility] Medical 05/25/21 at Branch 0909, Until 05/26/21 at 0411, Routine midazolam 2020-06- No IV Push, Uni vers (VERSED) 07-26 PRN, ity of injection 15:09: 10:11 Starting [place] as 52 :22 on [facility] 05/25/21 at Branch 0909, Until 05/26/21 at 0411, Routine ceFAZolin 2020-06- No Slow IV Univ ers (ANCEF) 07-26 Push, PRN, ity o f injection 15:00: 10:11 Starting [place] as 17 :22 on [facility] 05/25/21 at Branch 0900, Until e 05/26/21 at 0411, ANTONI metoprolol 2020-06 Yes 12.5mg Take 12.5 Univers succinate 1-30 mg by ity of XL 25 mg 24 09:39: mouth [place] hr tablet 06 daily. Medical Branch clopidogreL 2020-06 Yes 75mg Take 75 mg Univers 75 mg 1-30 by mouth ity of tablet 09:39: daily. [address] Branch lisinopriL 2020-06 Yes 10mg Take 10 mg U nivers 10 mg 1-30 by mouth ity of tablet 09:39: daily. [address] Branch traZODone 2020-06 Yes 50mg Take 50 mg Un tristan 50 mg 1-30 by mouth ity of tablet 09:39: at [place] 06 bedtime. Medical Branch atorvastati 2020-06 Yes 80mg Take 80 mg Univers n 80 mg 1-30 by mouth ity of tablet 09:39: at [place] 06 bedtime. Medical Branch pantoprazol 2020-06 Yes 40mg Take 40 mg Univers e 40 mg EC 1-30 by mouth ity o f tablet 09:39: daily. [place] 06 Medical Branch metoprolol 2020-06 Yes 12.5mg Take 12.5 Univers succinate 1-30 mg by ity of XL 25 mg 24 09:39: mouth [place] hr tablet 06 daily. Medical Branch clopidogreL 2020-06 Yes 75mg Take 75 mg Univers 75 mg 1-30 by mouth ity of tablet 09:39: daily. Medical Branch lisinopriL 2020-06 Yes 10mg Take 10 mg U nivers 10 mg 1-30 by mouth ity of tablet 09:39: daily. Medical Branch traZODone 2020-06 Yes 50mg Take 50 mg Un tristan 50 mg 1-30 by mouth ity of tablet 09:39: at [place] 06 bedtime. Medical Branch atorvastati 2020-06 Yes 80mg Take 80 mg Univers n 80 mg 1-30 by mouth ity of tablet 09:39: at [place] 06 bedtime. Medical Branch pantoprazol 2020-06 Yes 40mg Take 40 mg Univers e 40 mg EC 1-30 by mouth ity o f tablet 09:39: daily. Medical Branch metoprolol 2020-06 Yes 12.5mg Take 12.5 Univers succinate 1-30 mg by ity of XL 25 mg 24 09:39: mouth [place] hr tablet 06 daily. Medical Branch clopidogreL 2020-06 Yes 75mg Take 75 mg Univers 75 mg 1-30 by mouth ity of tablet 09:39: daily. Medical Branch lisinopriL 2020-06 Yes 10mg Take 10 mg U nivers 10 mg 1-30 by mouth ity of tablet 09:39: daily. Medical Branch traZODone 2020-06 Yes 50mg Take 50 mg Un tristan 50 mg 1-30 by mouth ity of tablet 09:39: at [place] 06 bedtime. Medical Branch atorvastati 2020-06 Yes 80mg Take 80 mg Univers n 80 mg 1-30 by mouth ity of tablet 09:39: at [place] 06 bedtime. Medical Branch pantoprazol 2020-06 Yes 40mg Take 40 mg Univers e 40 mg EC 1-30 by mouth ity o f tablet 09:39: daily. Medical Branch metoprolol 2020-06 Yes 12.5mg Take 12.5 Univers succinate 1-30 mg by ity of XL 25 mg 24 09:39: mouth [place] hr tablet 06 daily. Medical Branch clopidogreL 2020-06 Yes 75mg Take 75 mg Univers 75 mg 1-30 by mouth ity of tablet 09:39: daily. Medical Branch lisinopriL 2020-06 Yes 10mg Take 10 mg U nivers 10 mg 1-30 by mouth ity of tablet 09:39: daily. Medical Branch traZODone 2020-06 Yes 50mg Take 50 mg Un tristan 50 mg 1-30 by mouth ity of tablet 09:39: at [place] [address] bedtime. Medical Branch atorvastati 2020-06 Yes 80mg Take 80 mg Univers n 80 mg 1-30 by mouth ity of tablet 09:39: at [place] [address] bedtime. Medical Branch pantoprazol 2020-06 Yes 40mg Take 40 mg Univers e 40 mg EC 1-30 by mouth ity o f tablet 09:39: daily. Medical Branch predniSONE 2020-06 Yes [id number] 100mg Take 5 Univers 20 mg 1-17 tablets by ity of tablet 00:00: mouth [place] 00 daily. Medical Days 3-6 Branch during cycle 1. predniSONE 2020-06 Yes [id number] 100mg Take 5 Univers 20 mg 1-17 tablets by ity of tablet 00:00: mouth [place] 00 daily. Medical Days 3-6 Branch during cycle 1. predniSONE 2020-06 Yes [id number] 100mg Take 5 Univers 20 mg 1-17 tablets by ity of tablet 00:00: mouth [place] 00 daily. Medical Days 3-6 Branch during cycle 1. predniSONE 2020-06 Yes [id number] 100mg Take 5 Univers 20 mg 1-17 tablets by ity of tablet 00:00: mouth [place] 00 daily. Medical Days 3-6 Branch during cycle 1. traMADoL 50 2020-06 Yes [id number] 50mg Take 1 Univ ers mg tablet 1-12 tablet by ity o f 00:00: mouth [place] 00 every 6 Medical (six) Branch hours as needed for Pain (scale 7-10). Indication s: chronic pain allopurinoL 2020-06 Yes [id number] 300mg Take 1 Univers 300 mg 1-12 tablet by ity of tablet 00:00: mouth [place] 00 daily. Medical Branch proCHLORper 2020-06 Yes [id number] 10mg Take 1 Univers azine 10 mg 1-12 tablet by ity of tablet 00:00: mouth [place] 00 every 6 Medical (six) Branch hours as needed for Nausea and Vomiting (N/V). ondansetron 2020-06 Yes [id number] 4mg Take 1 Univers 4 mg 1-12 tablet by ity of disintegrat 00:00: mouth [place] ing tablet 00 every 8 Medica l (eight) Branch hours as needed for Nausea and Vomiting (N/V). traMADoL 50 2020-06 Yes [id number] 50mg Take 1 Univ ers mg tablet 1-12 tablet by ity o f 00:00: mouth [place] 00 every 6 Medical (six) Branch hours as needed for Pain (scale 7-10). Indication s: chronic pain allopurinoL 2020-06 Yes [id number] 300mg Take 1 Univers 300 mg 1-12 tablet by ity of tablet 00:00: mouth [place] 00 daily. Medical Branch proCHLORper 2020-06 Yes [id number] 10mg Take 1 Univers azine 10 mg 1-12 tablet by ity of tablet 00:00: mouth [place] 00 every 6 Medical (six) Branch hours as needed for Nausea and Vomiting (N/V). ondansetron 2020-06 Yes [id number] 4mg Take 1 Univers 4 mg 1-12 tablet by ity of disintegrat 00:00: mouth [place] ing tablet 00 every 8 Medica l (eight) Branch hours as needed for Nausea and Vomiting (N/V). traMADoL 50 2020-06 Yes [id number] 50mg Take 1 Univ ers mg tablet 1-12 tablet by ity o f 00:00: mouth [place] 00 every 6 Medical (six) Branch hours as needed for Pain (scale 7-10). Indication s: chronic pain allopurinoL 2020-06 Yes [id number] 300mg Take 1 Univers 300 mg 1-12 tablet by ity of tablet 00:00: mouth [place] 00 daily. Medical Branch proCHLORper 2020-06 Yes [id number] 10mg Take 1 Univers azine 10 mg 1-12 tablet by ity of tablet 00:00: mouth [place] 00 every 6 Medical (six) Branch hours as needed for Nausea and Vomiting (N/V). ondansetron 2020-06 Yes [id number] 4mg Take 1 Univers 4 mg 1-12 tablet by ity of disintegrat 00:00: mouth [place] ing tablet 00 every 8 Medica l (eight) Branch hours as needed for Nausea and Vomiting (N/V). traMADoL 50 2020-06 Yes [id number] 50mg Take 1 Univ ers mg tablet 1-12 tablet by ity o f 00:00: mouth [place] 00 every 6 Medical (six) Branch hours as needed for Pain (scale 7-10). Indication s: chronic pain allopurinoL 2020-06 Yes [id number] 300mg Take 1 Univers 300 mg 1-12 tablet by ity of tablet 00:00: mouth [place] 00 daily. Medical Branch proCHLORper 2020-06 Yes [id number] 10mg Take 1 Univers azine 10 mg 1-12 tablet by ity of tablet 00:00: mouth [place] 00 every 6 Medical (six) Branch hours as needed for Nausea and Vomiting (N/V). ondansetron 2020-06 Yes [id number] 4mg Take 1 Univers 4 mg 1-12 tablet by ity of disintegrat 00:00: mouth [place] ing tablet 00 every 8 Medica l (eight) Branch hours as needed for Nausea and Vomiting (N/V). fluticasone 2020-06 Yes [id number] 2{spray Use 2 Univers propionate 1-03 } Sprays in ity of 50 00:00: each [place] mcg/actuati 00 nostril Medic al on nasal daily. Branch spray fluticasone 2020-06 Yes [id number] 2{spray Use 2 Univers propionate 1-03 } Sprays in ity of 50 00:00: each [place] mcg/actuati 00 nostril Medic al on nasal daily. Branch spray fluticasone 2020-06 Yes [id number] 2{spray Use 2 Univers propionate 1-03 } Sprays in ity of 50 00:00: each [place] mcg/actuati 00 nostril Medic al on nasal daily. Branch spray fluticasone 2020-06 Yes [id number] 2{spray Use 2 Univers propionate 1-03 } Sprays in ity of 50 00:00: each [place] mcg/actuati 00 nostril Medic al on nasal daily. Branch spray SAW SHARPENER THYROID Yes TAKE 1 Unive rs 60 mg 9-21 TABLET BY ity of tablet 00:00: MOUTH ONCE [place] 00 DAILY ON Medical AN EMPTY Branch STOMACH FOR 30 DAYS SAW SHARPENER THYROID Yes TAKE 1 Unive rs 60 mg 9-21 TABLET BY ity of tablet 00:00: MOUTH ONCE [place] 00 DAILY ON Medical AN EMPTY Branch STOMACH FOR 30 DAYS SAW SHARPENER THYROID 0 Yes TAKE 1 Unive rs 60 mg 9-21 TABLET BY ity of tablet 00:00: MOUTH ONCE [place] 00 DAILY ON Medical AN EMPTY Branch STOMACH FOR 30 DAYS SAW SHARPENER THYROID 2020-0 Yes TAKE 1 Unive rs 60 mg 9-21 TABLET BY ity of tablet 00:00: MOUTH ONCE [place] 00 DAILY ON Medical AN EMPTY Branch STOMACH FOR 30 DAYS Vital Signs Vital Name Observation Time Observation Value Comments Source Systolic blood 2021-05-25 15:45:00 153 mm[Hg] Univer sity of pressure [facility] Diastolic blood 2021-05-25 15:45:00 68 mm[Hg] Unive rsity of [facility] Heart rate 2021-05-25 15:45:00 87 /min [facility] Oxygen saturation in 2021-05-25 15:45:00 98 /min [facility] Arterial blood by [facility] Pulse oximetry Branch Respiratory rate 2021-05-25 15:40:00 15 /min [facility] Body height 2021-05-25 14:32:00 152.4 cm [facility] Body weight 2021-05-25 14:32:00 70.308 kg [facility] BMI 2021-05-25 14:32:00 30.27 kg/m2 [facility] Procedures Procedure Date / Time Performed Performing Clinician [facility] e ASSIGNMENT OF BENEFITS 2021-06-02 17:05:27 Doctor Unassigned, No [facility] Name Medical Branch REFERRAL- 2021-03-16 05:01:00 Doctor Unassigned, No [facility] REQUEST/RESPONSE Name Medical [place] Encounters Start End Encounter Admission Attending Care Care Encounter Source Date/Time Date/Time Type Type Clinicians Facility Department ID 2021-06-16 2021-06-16 Outpatient R GINGER CTJANENE [facility] [id number] Univers 10:40:00 10:40:[id number] [facility] 2021-06-03 2021-06-03 Telephone SANDIE Miles [id number] Univers 00:00:00 00:00:00 [place] H [id number] it y of [facility] [id number] [place] as [id number] [facility] 080 [place] 2021-06-02 2021-06-02 Procurement Manager 1, Adc Lab [facility] 1.2.840.114 [id number] Univers 11:06:42 11:21:42 Visit Frantz Qureshi [id number] ity [facility] [id number] [place] [id number] [facility] 353 [place] 2021-06-02 2021-06-02 [facility] [id number] Univers 11:00:00 11:00:[address] [facility] 2021-06-02 2021-06-02 Orders Doctor ELSA [id number] Univers 00:00:00 00:00:00 Only Unassigned, ALBERTA [id number] ity of [place] [facility] [id number] [place] as [id number] [facility] 009 [place] 2021-05-25 2021-05-25 [facility] [id number] Univers 08:04:30 23:59:[address] [facility] 2021-05-25 2021-05-25 [facility] [id number] Univers 08:00:00 23:59:00 Encounter Tejo SPECIALTY [id number] ity of C[place] [id number] [place] [facility] AT [id number] Il nitzaak DARLINE 803 [facility] 2021-03-20 2021-03-20 ELSA Parry [id number] Univers 00:00:00 00:00:00 (Out) Bryan PINZON [id number] it y of [facility] [id number] [place] as [phone] [facility] 043 Branch 2021-03-16 2021-03-16 Orders Doctor ELSA [id number] Univers 00:00:00 00:00:00 Only Unassigned, ALBERTA [id number] ity of [place] [facility] [id number] Richard as [id number] [facility] 009 Branch Results This patient has no known results.
[2021-06-03] MEDS ORDERED: NA CHLORIDE 0.9% 1,000 ML ONE ×2 (17:08→18:54)
[2021-06-03] MEDS ORDERED: ONDANSETRON 4 MG/2 ML VIAL ONE (17:08)
[2021-06-03 17:28] LABS: Hematocrit 26.1 % (36.0-45.0); MPV 8.4 fL (7.6-11.3); RBC Red Blood Cell Count 3.23 M/uL (3.86-4.86)
[2021-06-03 17:35] LABS: Urine Blood Negative (Negative); Urine Glucose Negative (Negative); Urine Protein Negative (Negative); Urine Specific Gravity 1.015 (1.005-1.030)
[2021-06-03 17:45] LABS: Magnesium 2.4 mg/dL (1.8-2.4)
[2021-06-03 17:53] LABS: Potassium 2.7 mmol/L (3.5-5.1)
[2021-06-03 18:03] LABS: Urine Bacteria <20 /HPF (<20); Urine RBC <5 /HPF (NONE SEEN)
[2021-06-03 18:24] LABS: Blood Morphology Comment NOT SEEN (NOT SEEN); Platelet Estimate DECR
--- NOTE | 2021-06-03 18:54 | EDPHYS ---
Physician Documentation [facility] Name: Yohana To Age: 70 yrs Sex: Female : 1950 Arrival Date: 06/03/2021 Time: 14:39 Bed 3 Private MD: Peter Muñiz E ED Physician Tien Sánchez HPI: 06/03 18:30 This 70 yrs old Female presents to ER via Ambulatory with complaints of low rn potassium/low wbc. 18:30 Patient reports sent by oncologist for evaluation of dehydration and syncope. Patient rn states received chemotherapy 1 week ago and has been having some nausea vomiting and diarrhea. Feeling lightheaded especially when she stands and had a syncopal episode. Called oncologist who told her to come for evaluation. Outpatient labs showed neutropenia and hypokalemia. Patient denies any fever or respiratory symptoms. No urinary symptoms. Reports not eating and drinking much.. Onset: The symptoms/episode began/occurred 3 day(s) ago. Severity of symptoms: At their worst the symptoms were moderate in the emergency department the symptoms have improved. The patient has experienced a previous episode. The patient has been recently seen by a physician:. Historical: - Allergies: 14:51 codeine sulfate; ss 14:51 Demerol; ss - PMHx: 14:51 heart attack; Hypertension; ss - PSHx: 14:51 section; heart stent; hysterectomy; tubes tied; R bruce cath; stage 2 non ss hodkins lymphoma; - Immunization history:: Client reports receiving the 2nd dose of the Covid vaccine. - Social history:: Smoking status: Patient denies any tobacco usage or history of. - Family history:: not pertinent. - Hospitalizations: : No recent hospitalization is reported. ROS: 18:30 Constitutional: Negative for fever, chills, and weight loss, Eyes: Negative for injury, rn pain, redness, and discharge, Neck: Negative for injury, pain, and swelling, Cardiovascular: Negative for chest pain, palpitations, and edema, Respiratory: Negative for shortness of breath, cough, wheezing, and pleuritic chest pain, Abdomen/GI: Positive for nausea/vomiting/diarrhea Back: Negative for injury and pain, : Negative for injury, bleeding, discharge, and swelling, MS/Extremity: Negative for injury and deformity, Skin: Negative for injury, rash, and discoloration, Neuro: Positive for generalized weakness Exam: 18:19 Constitutional: This is a well developed, well nourished patient who is awake, alert, rn and in no acute distress. Head/Face: Normocephalic, atraumatic. Eyes: Periorbital areas with no swelling, redness, or edema. Cardiovascular: Regular rate and rhythm. No pulse deficits. Respiratory: No increased work of breathing, no retractions or nasal flaring. Abdomen/GI: Soft, non-tender MS/ Extremity: Pulses equal, no cyanosis. Neurovascular intact. Full, normal range of motion. Equal circumference. Neuro: Awake and alert, GCS 15, oriented to person, place, time, and situation. Cranial nerves II-XII grossly intact. Motor strength 5/5 in all extremities. Sensory grossly intact. 18:30 Skin: Warm, dry with normal turgor. Normal color with no rashes, no lesions, and no rn evidence of cellulitis. 18:55 ECG was reviewed by the Attending Physician. rn Vital Signs: 14:53 BP 110 / 81; Pulse 100; Resp 17; Temp 97.2; Pulse Ox 98% ; Weight 70.31 kg; Height 5 ss ft. 0 in. (152.40 cm); Pain 0/10; 17:07 BP 135 / 55; Pulse 75; Resp 16; Pulse Ox 98% on R/A; jean baptiste 18:28 BP 145 / 55; Pulse 79; Resp 18; Pulse Ox 100% on R/A; jean baptiste 19:32 BP 134 / 53; Pulse 70; Resp 17; Pulse Ox 99% on R/A; ap3 19:57 BP 134 / 53; Pulse 18; Resp 87; Temp 98.5; Pulse Ox 99% on R/A; mk 14:53 Body Mass Index 30.27 (70.31 kg, 152.40 cm) Judy Coma Score: 19:57 Eye Response: spontaneous(4). Verbal Response: oriented(5). Motor Response: obeys mk commands(6). Total: 15. MDM: 16:40 Patient medically screened. rn 18:30 Differential Diagnosis Dehydration, metabolic derangement, urine infection. Data rn reviewed: vital signs, nurses notes, lab test result(s), and as a result, I will discharge patient. Data interpreted: youth nutritional monitor: rate is 79 beats/min, rhythm is normal sinus rhythm, regular, with no ectopy, Interpretation: normal rate, normal rhythm, Pulse oximetry: on room air is 100 %. Interpretation: normal. Counseling: I had a detailed discussion with the patient and/or guardian regarding: the historical points, exam findings, and any diagnostic results supporting the discharge/admit diagnosis, lab results, the need for outpatient follow up, to return to the emergency department if symptoms worsen or persist or if there are any questions or concerns that arise at home. Response to treatment: the patient's symptoms have markedly improved after treatment, and as a result, I will discharge patient. ED course: Patient states feels much better after 1 L bolus. States for the first time she is able to walk without feeling lightheaded or drunk. Labs consistent with what was obtained as outpatient. Patient already received Neulasta. I consulted with her oncologist Ginger at [facility], after consultation deemed okay to be discharged and will follow up as outpatient. Patient denies dizziness and no vomiting while here in ER.. 06/03 16:54 Order name: CBC with Diff; Complete Time: 18:29 rn 06/03 16:54 Order name: Basic Metabolic Panel; Complete Time: 18:06 rn 06/03 16:54 Order name: Urine Microscopic Only; Complete Time: 18:06 rn 06/03 16:54 Order name: Magnesium; Complete Time: 18:06 rn 06/03 17:31 Order name: Manual Differential; Complete Time: 18:29 EDMS 06/03 17:36 Order name: Urine Dipstick-Ancillary; Complete Time: 18:06 EDLA 06/03 16:54 Order name: IV Start; Complete Time: 17:05 rn 06/03 16:54 Order name: EKG; Complete Time: 16:55 rn 06/03 16:54 Order name: Urine Dipstick-Ancillary (obtain specimen); Complete Time: 17:37 rn 06/03 16:54 Order name: EKG - Nurse/Tech; Complete Time: 17:15 rn EC:55 Rate is 75 beats/min. Rhythm is regular. QRS [place] is Normal. DE interval is normal. QRS rn interval is normal. QT interval is normal. No Q waves. T waves are Normal. No ST changes noted. Clinical impression: Normal ECG. Interpreted by me. Reviewed by me. Administered Medications: 17:15 Drug: NS 0.9% 1000 ml Route: IV; Rate: 1000 ml; Site: left antecubital; jean baptiste 18:15 Follow up: Response: No adverse reaction; IV Status: Completed infusion; IV Intake: jl7 1000ml 17:15 Drug: Zofran (Ondansetron) 4 mg Route: IVP; Site: left antecubital; jean baptiste 17:37 Follow up: Response: No adverse reaction; Nausea is decreased ap3 18:07 CANCELLED (Duplicate Order): Potassium Chloride 40 mEq PO once rn 18:29 CANCELLED (Duplicate Order): NS 0.9% 500 ml IV at bolus once rn 19:00 Drug: Potassium Chloride 10 mEq Route: IV; Rate: calculated rate; Site: left jl7 antecubital; 19:00 Drug: NS 0.9% 1000 ml Route: IV; Rate: 1000 ml; Site: left antecubital; jl7 Disposition Summary: 06/03/21 18:54 Discharge Ordered Location: Home rn Problem: new rn Symptoms: have improved rn Condition: Stable rn Diagnosis - Dehydration rn - Hypokalemia rn - Neutropenia, unspecified rn Followup: rn - With: Private Physician - When: 2 - 3 days - Reason: Recheck today's complaints, Re-evaluation by your physician Discharge Instructions: - Discharge Summary Sheet rn - Dehydration, Adult rn - Neutropenia rn - Hypokalemia rn Forms: - Medication Reconciliation Form rn - Thank You Letter rn - Antibiotic internal audit manager - Prescription Opioid Use rn Signatures: Dispatcher [employer] EDTien Marcus MD MD rn Smirch, Shelby, RN Devon Berkowitz RN RN jl7 JorgeStagerJoanna Amanda RN ap3 Corrections: (The following items were deleted from the chart) 18:07 18:06 Potassium Chloride 40 mEq PO once ordered. rn rn 18:29 18:25 NS 0.9% 500 ml IV at bolus once ordered. rn rn 18:32 18:19 Constitutional: This is a well developed, well nourished patient who is awake, rn alert, and in no acute distress. Head/Face: Normocephalic, atraumatic. Eyes: Periorbital areas with no swelling, redness, or edema. Cardiovascular: Regular rate and rhythm. No pulse deficits. Respiratory: No increased work of breathing, no retractions or nasal flaring. Abdomen/GI: Soft, non-tender, with normal bowel sounds. No distension or tympany. No guarding or rebound. No evidence of tenderness throughout. rn
--- NOTE | 2021-06-03 18:54 | ER ---
Nurse's Notes [facility] Name: Yohana To Age: 70 yrs Sex: Female : 1950 Arrival Date: 06/03/2021 Time: 14:39 Bed 3 Private MD: Peter Muñiz E Diagnosis: Dehydration;Hypokalemia;Neutropenia, unspecified Presentation: 06/03 14:53 Chief complaint: Patient states: Chemo doctor sent her in for low WBC and low ss Potassium, blood drawn yesterday. Fainting and dizzy spells since Tuesday. Coronavirus screen: Vaccine status: Patient reports receiving the 2nd dose of the covid vaccine. Client denies travel out of the [place] in the last 14 days. At this time, the client does not indicate any symptoms associated with coronavirus-19. Ebola Screen: Patient denies travel to an Ebola-affected area in the 21 days before illness onset. Initial Sepsis Screen: Does the patient meet any 2 criteria? HR > 90 bpm. No. Patient's initial sepsis screen is negative. Does the patient have a suspected source of infection? No. Patient's initial sepsis screen is negative. Risk Assessment: Do you want to hurt yourself or someone else? Patient reports no desire to harm self or others. Onset of symptoms was May 31, 2021. 14:53 Method Of Arrival: Ambulatory ss 14:53 Acuity: TONY 2 ss Triage Assessment: 16:38 General: Behavior is calm, cooperative. jean baptiste Historical: - Allergies: 14:51 codeine sulfate; ss 14:51 Demerol; ss - PMHx: 14:51 heart attack; Hypertension; ss - PSHx: 14:51 section; heart stent; hysterectomy; tubes tied; R bruce cath; stage 2 non ss hodkins lymphoma; - Immunization history:: Client reports receiving the 2nd dose of the Covid vaccine. - Social history:: Smoking status: Patient denies any tobacco usage or history of. - Family history:: not pertinent. - Hospitalizations: : No recent hospitalization is reported. Screenin:36 Abuse screen: Denies threats or abuse. Denies injuries from another. Nutritional jean baptiste screening: No deficits noted. Tuberculosis screening: No symptoms or risk factors identified. Fall Risk Secondary diagnosis (15 points) cancer, chemo. Assessment: 16:36 General: Appears in no apparent distress. Pain: Denies pain. Cardiovascular: Reports jean baptiste fatigue, syncope. 17:52 Reassessment: K 2.7 MD notified. jean baptiste 19:32 Reassessment: Patient and/or family updated on plan of care and expected duration. Pain ap3 level reassessed. Patient is alert, oriented x 3, equal unlabored respirations, skin warm/dry/pink. 19:45 General: Appears in no apparent distress. Pain: Denies pain. Cardiovascular: Heart mk tones S1 S2 Capillary refill < 3 seconds fingers toes Patient's skin is warm and dry. pale nails. Pulses are 2+ in right radial artery and left radial artery. Cardiovascular: Heart tones. Respiratory: Airway is patent Respiratory effort is even, unlabored, Respiratory pattern is regular, Breath sounds are clear. GI: No deficits noted. : No signs and/or symptoms were reported regarding the genitourinary system. Reports reports occasionally having 'different colored urine after chemo', RN instructed on observing urine to assess for hydration. Derm: Skin is intact, Skin is pale, Skin temperature is warm. Musculoskeletal: No signs and/or symptoms reported regarding the musculoskeletal system. Range of motion: intact in all extremities, Reports weakness decreased s/p meds and fluids. Vital Signs: 14:53 BP 110 / 81; Pulse 100; Resp 17; Temp 97.2; Pulse Ox 98% ; Weight 70.31 kg; Height 5 ss ft. 0 in. (152.40 cm); Pain 0/10; 17:07 BP 135 / 55; Pulse 75; Resp 16; Pulse Ox 98% on R/A; jean baptiste 18:28 BP 145 / 55; Pulse 79; Resp 18; Pulse Ox 100% on R/A; jean baptiste 19:32 BP 134 / 53; Pulse 70; Resp 17; Pulse Ox 99% on R/A; ap3 19:57 BP 134 / 53; Pulse 18; Resp 87; Temp 98.5; Pulse Ox 99% on R/A; mk 14:53 Body Mass Index 30.27 (70.31 kg, 152.40 cm) ss Judy Coma Score: 19:57 Eye Response: spontaneous(4). Verbal Response: oriented(5). Motor Response: obeys mk commands(6). Total: 15. ED Course: 14:39 Patient arrived in ED. am2 14:40 Peter Muñiz MD is Private Physician. am2 14:51 Arm band placed on. ss 14:55 Triage completed. ss 16:30 Yamini Hwang, ZINA is Primary Nurse. ap3 16:38 Patient has correct armband on for positive identification. Bed in low position. jean baptiste 16:38 No provider procedures requiring assistance completed. jean baptiste 16:40 Tien Sácnhez MD is Attending Physician. rn 17:05 Magnesium Sent. jean baptiste 17:05 CBC with Diff Sent. jean baptiste 17:05 Basic Metabolic Panel Sent. jean baptiste 17:06 Inserted saline lock: 20 gauge in left antecubital area, using aseptic technique. jean baptiste 17:15 Magnesium Sent. jean baptiste 17:15 CBC with Diff Sent. jean baptiste 17:16 Basic Metabolic Panel Sent. jean baptiste 20:01 IV discontinued, intact, bleeding controlled, No redness/swelling at site. mk Administered Medications: 17:15 Drug: NS 0.9% 1000 ml Route: IV; Rate: 1000 ml; Site: left antecubital; jean baptiste 18:15 Follow up: Response: No adverse reaction; IV Status: Completed infusion; IV Intake: jl7 1000ml 17:15 Drug: Zofran (Ondansetron) 4 mg Route: IVP; Site: left antecubital; jean baptiste 17:37 Follow up: Response: No adverse reaction; Nausea is decreased ap3 18:07 CANCELLED (Duplicate Order): Potassium Chloride 40 mEq PO once rn 18:29 CANCELLED (Duplicate Order): NS 0.9% 500 ml IV at bolus once rn 19:00 Drug: Potassium Chloride 10 mEq Route: IV; Rate: calculated rate; Site: left jl7 antecubital; 19:00 Drug: NS 0.9% 1000 ml Route: IV; Rate: 1000 ml; Site: left antecubital; jl7 Intake: 18:15 IV: 1000ml; Total: 1000ml. jl7 Outcome: 18:54 Discharge ordered by . rn 20:01 Discharged to home mk 20:01 Discharged to home ambulatory, with family. 20:01 Condition: stable 20:01 Discharge instructions given to patient, family. 20:02 Patient left the ED. mk Signatures: Tien Sánchez MD MD rn Smirch, Shelby, RN RN ss Leal, Jahala, RN RN jl7 Yamini Beth am2 Yamini Hwang RN RN ap3 Joanna Friend Madeline, RN RN mk Corrections: (The following items were deleted from the chart) 14:56 14:53 Acuity: TONY 3 ss ss
[2021-06-03] MEDS ORDERED: KCL 20 MEQ/100 ML IV ONE (19:00)
== END 2021-06-03 20:02 | disposition home or self-care (01) ==
LOC: ER 14:31
DX: E87.6 Hypokalemia (principal); E86.0 Dehydration; D70.9 Neutropenia, unspecified; I10 Essential (primary) hypertension
CPT/HCPCS: 96361; 93005; 85025; 80048; 36415; 83735; 96375; 96374; 99284; J3480; J7030 ×2; J2405; 81003; 81015